=== PATIENT | female | born 1995 | race Caucasian/White ===

== ENCOUNTER → 2017-04-25 | Outpatient (CLI) | payer OTHER ==
[~2017-04-25] MED LIST: ALBUAER2 INH; ANSHCCR/ PR; ASPEC81 PO; CHLO100T8 PO; CHLO1TAB15 PO; CRFL PO; CYNI1000 IM; DOCU-94 PO; ESCI10TA17 PO; FLNIN/ NAE; FLV1 PO; FLVHFA44 INH; GABA1CAP4 PO; GABA1CAP5 PO; LISI10TA PO; LORA10TA5 PO; LXP/20 PO; NAPR-1169 PO; OMEP40CA41 PO; PLEC3TAB PO; PRAZ2CAP3 PO; RANI150C4 PO; SUCR1TAB29 PO; TRAV0.00 OPB; VNTHFA/IN INH; WLLSR/200 PO; feosol PO
[2017-04-25 18:28] LABS: BLOOD UREA NITROGEN 5 mg/dl (7-18); BUN/CREATININE RATIO 7.1 (10-20); CALCIUM 9.2 mg/dl (8.5-10.1); CARBON DIOXIDE 27 mmol/L (21-32); CHLORIDE 108 mmol/L (98-107); CHOLESTEROL 201 mg/dl (0-200); CREATININE 0.65 mg/dl (0.60-1.20); GLUCOSE 85 mg/dl (70-99); POTASSIUM 4.4 mmol/L (3.5-5.1); SODIUM 141 mmol/L (136-145)
[2017-04-25 18:32] LABS: CHOLESTEROL/HDL RATIO 5.6; HDL CHOLESTEROL 36 mg/dl; LDL CHOLESTEROL CALCULATED 141 mg/dl; TRIGLYCERIDES 121 mg/dl (0-150); VERY LOW DENSITY LIPOPROT CALC 24 mg/dl
[2017-04-26 07:07] LABS: ESTIMATED AVERAGE GLUCOSE 117 mg/dl; HA1C FLAG Normal (Normal)
--- NOTE | 2017-05-09 11:54 | CODING QUERY MEDICAL NECESSITY ---
SUPPORTING DIAGNOSIS NEEDED Nestor WADSWORTH, A supporting diagnosis is required for the test/procedure performed on this patient in order for us to be reimbursed by the patient's insurance. Please provide a supporting diagnosis for the following test/procedure listed below next to the test name along with your signature. *If there is no additional diagnosis for this patient that would support the following test/procedure please document that below next to the test/procedure. Test(s)/Procedure(s) that require a supporting diagnosis: * 30734 GLYCATED HEMOGLOBIN DIAGNOSIS: DATE OF SERVICE: 04/25/17 Provider Signature: Date: Thank you Ron Reynolds [facility] Information Management Once completed, please kindly fax back to [phone] For questions please call [phone]
== END | disposition home or self-care (01) ==
LOC: C.LABPBG 14:14
PROVIDERS: ATTEND Physician Assistant
DX: Z00.00 Encounter for general adult medical examination without abnormal findings (principal); Z13.1 Encounter for screening for diabetes mellitus; E53.8 Deficiency of other specified B group vitamins

== ENCOUNTER → 2017-06-26 | Outpatient (CLI) | payer OTHER ==
--- NOTE | 2017-06-27 06:00 | PAP/PSG TECHNICIAN REPORT ---
[facility] Automatic Pinsetter Adjuster Polysomnogram Report Study name: None Report date: 06/27/2017 Study date: 06/26/2017 Referring Physician: Viktor Bruno M.D. Name: HOMER FERNANDEZ Interpreting Physician: Jaspreet Bruno M.D. Date of : 1995 Automatic Pinsetter Adjuster: Leanna Mcmahan [facility]. Sex: Female Age: 22 StudyType: PSG Weight: 231 lbs Height: 22 years, Height 5' 0" Neck Circum: 16 inches BMI: 45.11 Medications: Minipress 1 mg, Folic Acid 1 mg, Cyanocobalamin 1000 MCG/ML, Proventil HFA 108 ( 90 Base), Omeprazole 40 mg, Flovent HFA 220 MCG, Loestrin 1.5/30, Nuerontin 300 mg, Clonazepam, Bupropion HCL ER 200 mg, Travatan Z 0.004%, Thorazine 100 mg, Thorazine 50 mg, Ranitidine HCL 150 mg, Naproxen 500 mg, Escitalopram 20 mg Patient History 22 yr. old female here for a possible split night sleep study with ETC02 in room 4. Patient complains of loud snoring, choking, nocturia, and EDS. Patients [place] Sleepiness Scale Score is 11/24. Parameters Monitored NPSG: E1-M2, E2-M1, Fp1-M2, Fp2-M1, F3-M2, F4-M2, F4-M1, C3-M2, C4-M2, C4-M1, O1-M2, O2-M2, O2-M1, T3-M2, T4-M1, P3-M2, P4-M1, CHIN1, CHIN2, HR, EKG, Legs, PFLOW, SNOR, FLOW, CFLOW, Tidal Volume, THOR, ABDO, SpO2, PLTH, CPRESS, ETCO2 Wave, ETCO2, pH Sleep Architecture Sleep Stages Time at Lights Off 9:38:44 PM STAGES Time (min.) TST (%) Time at Lights On 5:30:14 AM Wake 72.0 -- Total Recording Time (TRT) 472.00 min. N1 17.5 4 Total Sleep Period (TSP) 425.0 min. N2 194.5 49 Total Sleep Time (TST) 399.5min. N3 109.5 27 Awake Time 72.5 min. REM 78.0 20 Wake after Sleep Onset 26.5 min. Sleep Efficiency (SE) 85 % Sleep Onset Latency (TELLO) 45.5 min. Number of Stage 1 Shifts None Awakenings 13 Stage Changes 59 Number of REM periods 6 REM 78.0 20 REM Latency 82.0 min. NREM 321.5 80 Body Position Analysis Supine Right Left Side Prone Vertical Total Sleep Time (min.) 232.7 0.0 104.4 104.41 68.6 7.0 Total Sleep Time (%) 57% 0% 26% 26 17% N/A% Total Sleep Time REM (min.) 37.5 0.0 29.5 None 11.0 0.0 Total Sleep Time NREM (min.) 190.5 0.0 74.9 None 56.1 0.0 Intermittent Wake (min.) 4.7 0.0 58.8 None 1.5 7.0 Total Sleep Period (%) 55% None None None None None Arousals Myoclonus (PLM) * Events Count Index Events Count Index Spontaneous 3 0 Events Awake (PLMW) 80 66.7 Respiratory 3 0.5 Events Asleep w/ Arousal (PLMA) 18 2.7 PLM 17 3 Events Asleep w/o Arousal (PLMS) 67 10.1 Snoring 3 0 Total Asleep 85 12.8 Total 26 4 Total 165 21 Respiratory Analysis * CA OA MA CH H RERA Total Count 1 0 0 0 67 1 68 Index 0.2 0.0 0.0 0 10.1 0 10.4 Mean Duration 11.3 0.0 0.0 0.00 21.0 27.0 20.9 Longest Duration 11.3 0.0 0.0 0.00 0.0 27.0 48.6 Respiratory Event Summary Total Supine ~Supine Right Left Prone REM NREM Apneas Count 1 1 0 N/A 0 0 0 1 Index 0.2 0 0 N/A 0.0 0 0 0 Hypopneas (4% Desat) Count 67 65 2 N/A 1 1 6 61 Index 10.1 17.1 1 N/A 0.6 0.9 4.6 11.4 Apneas & All Hypopneas Count 68 66 2 N/A 1 1 6 62 Index 10.2 17 1 N/A 1 1 4.6 11.6 Respiratory Events ([employer] Worker+All Hyp+RERA) Count 68 67 2 N/A 1 1 6 62 Index 10.4 18 1 N/A 0.6 0.9 4.6 11.8 Respiratory Related Arousal Count 3 67 0 N/A 0 0 0 3 Index 0.5 1 0 N/A 0 0 0 1 Snoring Analysis Supine Right Left Prone REM NREM Total Snore duration 1.6 min Snores count 45 N/A 5 2 2 50 52 Snore mean duration 1.8 Sec Snores index 12 N/A 3 2 1.5 9.3 7.8 TST with snoring (%) 0.4% SpO2 Analysis Total REM NREM Awake <50% 0.0 min. 0.0 min. 0.0 min. 0.0 min. 51 - 60% 0.0 min. 0.0 min. 0.0 min. 0.0 min. 61 - 70% 0.0 min. 0.0 min. 0.0 min. 0.0 min. 71 - 80% 0.3 min. 0.0 min. 0.0 min. 0.3 min. 81 - 90% 65.2 min. 10.5 min. 51.6 min. 3.1 min. 91 - 100% 398.2 min. 67.5 min. 269.8 min. 60.9 min. Average 94 95 94 96 Minimum SpO2 80 85 85 80 Desaturation Event Index 10.3 6.2 11.9 7.5 # Desat. Events below 89% 32 1 30 1 Time(%) with Saturation below 89% 3.9 1.0 2.6 0.4 Time(min.) with Saturation below 89% 18.0 4.4 11.9 1.6 Heart Rate Analysis End Tidal CO2 Analysis Min (bpm) Max (bpm) Average (bpm) TSP (mins) % of TSP Awake 87 254 100 Above 55 mmHg 0.0 0.0 NREM 76 138 99 50-55 mmHg 0.0 0.0 REM 81 162 98 45-50 mmHg 0.0 0.0 Overall 76 162 99 40-45 mmHg 247.0 61.8 35-40 mmHg 122.9 30.8 30-35 mmHg 28.1 7.0 Average ETCO2 0.1 Supplemental O2 Values Minimum O2 level: None Value Start Time End Time Automatic Pinsetter Adjuster Comments MS. Fernandez slept in the, left, supine and prone positions. Tachycardia and PLMs noted. No bruxism noted. Snoring was noted and scored as a 1 on a scale of 0 through 5. (0=no snoring, 5=snoring loud enough to be heard through a closed door or down the [address]) MS. Fernandez did not wake to use the restroom during the night. MS. Fernandez stated, that she had a normal night. The final report will be interpreted and signed by a sleep physician. The completed physician report will then be placed in the patient medical record. Therapy (cm H2O) 0 TIB (min.) 471.5 TST (min.) 399.5 Sleep Onset (min.) 45.5 REM Onset From Sleep (min.) 82.0 Sleep Efficiency % 85 Wakefulness (%) 15 Wakefulness (min.) 72.5 NREM 1 (%) 4 NREM 1 (min.) 17.5 NREM 2 (%) 49 NREM 2 (min.) 194.5 NREM 3 (%) 27 NREM 3 (min.) 109.5 REM (%) 20 REM (min.) 78.0 # Arousals 26 Arousal Index 4 # Snore 52 Snore Index 7.8 AHI 10.2 AHI Supine 17 AHI Non-Supine 1 NREM AHI 11.6 REM AHI 4.6 RDI 10.4 # Obstructive Apnea 0 # Central Apnea 1 # Mixed Apnea 0 # Hypopneas 67 RERAs 1 Total Respiratory Events 71 Time Below SpO2 89% (min.) 16.4 Mean NREM SpO2 (%) 94 Mean REM SpO2 (%) 95 Mean Sleep SpO2 (%) 94 Min NREM SpO2 (%) 85 Min REM SpO2 (%) 85 Position Supine (min.) 232.7 Position Non-supine (min.) 171.5 LM Index Sleep 12.8 LM Index NREM 14.9 LM Index REM 3.8 Mean Heart Rate (bpm) 99 Min Heart Rate (bpm) 76
--- NOTE | 2017-07-13 14:45 | POLYSOMNOGRAPH REPORT ---
REFERRING PERSON: Dr. Shira Bruno. QUALITY COMPLIANCE MANAGER: Leanna Mcmahan. Ms. Hughes is a 22-year-old female for a possible split night sleep study. She complains of loud snoring, choking, nocturnal hypoxemia and excessive daytime sleepiness. Her [place] sleepiness scale score on the evening of this study was 11. BMI was 45.11. Following the technical and digital specifications of the [place] [employer] (AASM) a standard diagnostic polysomnogram was performed monitoring EEG, EOG, EMG (chin and leg deviations), oxygen saturation, body position, digital video, respiratory effort and airflow. The sleep Stage and event scoring was based on the AASM Manual for the Scoring of Sleep and Associated Events 2007 edition. Apneas are defined as a drop in the peak thermal sensor excursion by >90% of baseline for at least 10 seconds. Hypopneas were scored using the 4% oxygen desaturation rule (4A-Medicare) and a decrease in the nasal pressure excursions by >30% of baseline for at least 10 seconds. Respiratory effort-related arousal (RERA's) is defined as a sequence of breaths lasting at least 10 seconds characterized by increasing respiratory effort or flattening of the nasal pressure waveform leading to an arousal from sleep when the sequence of breaths does not meet criteria for an apnea or hypopnea. Apnea Hypopnea index (AHI) is defined as the number of apneas and hypopneas occurring in an hour of sleep. Respiratory disturbance index (RDI) is defined as the number of apneas, hypopneas, and RERA's occurring in an hour of sleep. Ms. Hughes's total sleep period time was 425 minutes. Total sleep time was 399.5 minutes. Sleep efficiency was 85%. Latency to sleep onset was 45.5 minutes. Wake after sleep onset was 26.5 minutes. Total non-REM sleep time was 321.5 minutes. She spent 4% of that time in N1 sleep, 49% in N2 sleep and 27% in N3 sleep. REM latency was 82 minutes. Total REM sleep time was 78 minutes or 20% of total sleep time. There were 26 cortical arousals from sleep. 3 of these arousals were spontaneous, 3 were due to respiratory events, 17 due to periodic limb movements of sleep and 3 were due to snoring. There were 85 periodic limb movements noted on this test. Limb movement index was 12.8 and limb movement with arousal index was 2.7. There were 1 central apnea, no obstructive apneas and no mixed apneas on this test. However, there were 67 hypopnea. Apnea-hypopnea index was 10.2. Supine AHI was 17 and REM AHI was 4.6. Mean saturation during sleep was 94% with desaturations to 80%. Saturations were less than 89% for 18 minutes of sleep time. This patient was noted to have tachycardia during supine REM sleep on this test. Her heart rate reached 160 beats per minute. End-tidal CO2 was recorded on this test. End tidal CO2s were between 40 and 45 mmHg for 61.8% of total sleep period time, between 35 and 40 mmHg for 30.8% and between 30 and 35 mmHg for 7% of total sleep period time. IMPRESSION AND PLAN: 1. A 22-year-old female with evidence of mild sleep apnea and mild nocturnal hypoxemia on this study. Additionally, she was noted to have tachycardia during supine REM sleep to 160 beats per minute. 2. This patient would likely benefit from positive airway pressure therapy. She should return to sleep lab for a full night titration and then based on those results, be started on equipment at home. A download from her machine can be reviewed in 1 month both to check compliance as well as AHI and further pressure adjustments can occur at that time. 3. Should this tachycardia be new, the patient may benefit from a 30-day event recorder or Holter monitor to evaluate this further.
== END | disposition home or self-care (01) ==
LOC: C.NEUR 21:00
PROVIDERS: ATTEND Family Medicine
DX: R06.83 Snoring (principal); G47.10 Hypersomnia, unspecified; E66.01 Morbid (severe) obesity due to excess calories; G47.33 Obstructive sleep apnea (adult) (pediatric)

== ENCOUNTER → 2017-08-07 | Outpatient (CLI) | payer OTHER ==
[~2017-08-07] MED LIST changes: -ALBUAER2 INH; -ANSHCCR/ PR; -ASPEC81 PO; -CRFL PO; -DOCU-94 PO; -ESCI10TA17 PO; -FLNIN/ NAE; -GABA1CAP5 PO; -LORA10TA5 PO
[2017-08-07 13:03] LABS: BLOOD UREA NITROGEN 7 mg/dl (7-18); BUN/CREATININE RATIO 10.5 (10-20); CALCIUM 9.1 mg/dl (8.5-10.1); CARBON DIOXIDE 25 mmol/L (21-32); CHLORIDE 108 mmol/L (98-107); CREATININE 0.62 mg/dl (0.60-1.20); GLUCOSE 95 mg/dl (70-99); POTASSIUM 3.7 mmol/L (3.5-5.1); SODIUM 139 mmol/L (136-145)
== END | disposition home or self-care (01) ==
LOC: C.LABPBG 10:37
PROVIDERS: ATTEND Physician Assistant
DX: Z01.818 Encounter for other preprocedural examination (principal)

== ENCOUNTER → 2017-08-17 | Day surgery (SDC) | payer OTHER ==
[2017-07-24 14:45] VITALS: BMI 42.0
--- NOTE | 2017-07-24 15:53 | PAT Medication Instructions ---
Service Date Jul 24, 2017. Current Home Medication List Albuterol Hfa (Ventolin Hfa), 2-4 PUFFS INH Q6H PRN for SOB/Wheezing Bupropion Hcl (Wellbutrin Sr), 200 MG PO BID Chlorpromazine Hcl (Thorazine), 50 MG PO QAM Chlorpromazine Hcl (Thorazine), 100 MG PO HS Cyanocobalamin (Cyanocobalamin), 1,000 MCG IM MONTHLY Escitalopram Oxalate (Escitalopram Oxalate), 1 TAB PO QAM Fluticasone Propionate (Flovent Hfa), 2 PUFFS INH BID Folic Acid (Folic Acid), 1 MG PO QAM Gabapentin (Gabapentin), 1 CAP PO TID Naproxen (Naprosyn), 500 MG PO DAILY PRN for Pain Omeprazole (Prilosec), 40 MG PO QAM Plecanatide (Trulance), 1 TAB PO QPM Prazosin Hcl (Prazosin), 2 MG PO HS Ranitidine Hcl (Ranitidine Hcl), 1 CAP PO BID Sucralfate (Carafate), 1 TAB PO QID Travoprost (Travatan Z), 1 DROP OPB HS [feosol], 324 MG PO QAM Medication Instructions For Your Scheduled Surgery - Continue as directed: Cyanocobalamin (Cyanocobalamin), 1,000 MCG IM MONTHLY - Hold the following medications 7 days prior to surgery per primary physician' s instructions: Naproxen (Naprosyn), 500 MG PO DAILY PRN for Pain - Hold the following medications the morning of surgery: Folic Acid (Folic Acid), 1 MG PO QAM [feosol], 324 MG PO QAM Sucralfate (Carafate), 1 TAB PO QID - Take the following medications the morning of surgery with a sip of water OTHERWISE NOTHING TO EAT OR DRINK AFTER MIDNIGHT: Fluticasone Propionate (Flovent Hfa), 2 PUFFS INH BID Albuterol Hfa (Ventolin Hfa), 2-4 PUFFS INH Q6H PRN for SOB/Wheezing (use if needed; BRING TO HOSPITAL) Ranitidine Hcl (Ranitidine Hcl), 1 CAP PO BID Bupropion Hcl (Wellbutrin Sr), 200 MG PO BID Gabapentin (Gabapentin), 1 CAP PO TID Escitalopram Oxalate (Escitalopram Oxalate), 1 TAB PO QAM Chlorpromazine Hcl (Thorazine), 50 MG PO QAM Omeprazole (Prilosec), 40 MG PO QAM - Take the following medications as scheduled the night before surgery: Fluticasone Propionate (Flovent Hfa), 2 PUFFS INH BID Albuterol Hfa (Ventolin Hfa), 2-4 PUFFS INH Q6H PRN for SOB/Wheezing Ranitidine Hcl (Ranitidine Hcl), 1 CAP PO BID Bupropion Hcl (Wellbutrin Sr), 200 MG PO BID Gabapentin (Gabapentin), 1 CAP PO TID Plecanatide (Trulance), 1 TAB PO QPM Prazosin Hcl (Prazosin), 2 MG PO HS Chlorpromazine Hcl (Thorazine), 100 MG PO HS Sucralfate (Carafate), 1 TAB PO QID Travoprost (Travatan Z), 1 DROP OPB HS - Hold the following for 24hours prior to surgery: (new blood pressure medicine) Lisinopril 10mg If you have any questions please call us at [phone] or [phone] or [phone]
[2017-07-24 16:30] LABS: BASO % 0.5 %; BASO ABS # 0.03 K/uL (0-0.2); COMPLETE YES; EOS % 0.8 %; LYMPH % 46.6 %; LYMPH ABS # 2.77 K/uL (1.2-3.4); MEAN CELL VOLUME 82.8 fL (80-100); MEAN CORPUSCULAR HEMOGLOBIN 26.9 pg (25-34); MEAN CORPUSCULAR HGB CONC 32.4 g/dl (32-36); MEAN PLATELET VOLUME 9.8 fL (7.4-10.4); MONO % 7.7 %; NEUT % 44.4 %; PLATELET COUNT 373 K/uL (130-400); RED BLOOD COUNT 4.95 M/uL (4.2-5.4); WHITE BLOOD COUNT 5.94 K/uL (4.8-10.8)
[2017-07-24 16:37] LABS: CALCIUM 9.1 mg/dl (8.5-10.1); CREATININE 0.63 mg/dl (0.60-1.20)
[2017-07-24 16:43] LABS: PARTIAL THROMBOPLASTIN RATIO 1.2; URINE APPEARANCE CLOUDY (CLEAR); URINE BILIRUBIN NEG (NEG); URINE COLOR YELLOW; URINE EPITHELIAL CELL AUTO 20-30 /lpf (0-5); URINE NITRITE NEG (NEG); URINE PH 7.5 (4.5-7.5); URINE SPECIFIC GRAVITY 1.025 (1.000-1.030); UROBILINOGEN NEG (NEG)
[2017-07-24 16:48] LABS: MANUAL MICROSCOPIC REQUIRED? NO; REVIEW REQ? NO
[2017-07-25 05:47] LABS: ESTIMATED AVERAGE GLUCOSE 117 mg/dl; HA1C FLAG Normal (Normal)
[~2017-08-17] VITALS: Ht 154.9 cm; Wt 101.8 kg
[~2017-08-17] MED LIST changes: +ATROPINE SULFATE 0.1 MG/ML 5ML SYR IV PRN; +BACITRACIN 50000 UNIT VIAL ONE; +BUPIVACAINE 0.25% 30 ML VIAL ONE; +BUPIVACAINE/EPINEPHRINE 0.25% 1:200,000 30 ML VIAL ONE; +CEFAZOLIN 2000MG IV PUSH 10 ML IV SCH; +DEXAMETHASONE SOD INJ 4 MG/ML VIAL ONE; +EpHEDrine SULFATE INJ 50 MG/ML AMP IV PRN; +EpINEphrine HCL INJ 1 MG/ML 5ML SYRINGE ONE; +EpINEphrine INJ 1MG/ML AMP 1 MG/ML AMP ONE; +FENTANYL CITRATE INJ 50 MCG/1 ML 2 ML VIAL ONE; +FERR1TAB23 PO; +GLYCOPYRROLATE INJ 0.2 MG/ML VIAL ONE; +HYDROmorphone INJ 1 MG/ML SYR IV PRN; +HYDROmorphone INJ 2 MG/ML SYR/VIAL ONE; +LACTATED RINGER'S 1000ML 1,000 ML IV SCH; +LIDOCAINE HCL 2% 2 ML VIAL (20MG/ML) ONE; +MIDAZOLAM HCL 1 MG/ML 2ML VIAL ONE; +MORPHINE SULFATE PF 2MG/2ML SYR ONE; +NEOSTIGMINE METHYLSULFATE 5 MG/5 ML SYR ONE; +NURSING VERBAL MED ORDER ONE; +ONDANSETRON INJ 2 MG/ML 2 ML VIAL IV PRN; +ONDANSETRON INJ 2 MG/ML 2 ML VIAL ONE; +OXYCODONE/ACETAMINOPHEN 5-325 TAB PO PRN; +PERCOCET HOME PACK PO ONE; +PHENYLEPHRINE 100MCG/ML 5ML SYR ONE; +PROMETHAZINE HCL INJ 6.25 MG in SODIUM CHLORIDE 0.9% 50ML 50 ML IV PRN; +PROPOFOL IV EMULSION 10 MG/ML 20 ML VIAL IV ONE; +ROCURONIUM BROMIDE 10 MG/ML 5 ML VIAL IV ONE
--- NOTE | 2017-08-17 00:38 | HISTORY & PHYSICAL EXAMINATION ---
DATE OF ADMISSION: 08/17/2017 SUBJECTIVE CHIEF COMPLAINT: Left ankle pain. HISTORY OF PRESENT ILLNESS: This is a patient who sustained a left distal tibia and fibula fracture. The fractures have since healed; however, she has developed traumatic arthritis and pain within the left ankle and hindfoot. She has been treated conservatively; however, she has failed conservative management and she is now being set up for surgical treatment. PAST MEDICAL HISTORY: Asthma and COPD, depression and mood disorder, history of anxiety, history of anemia, prediabetes, acid reflux, obesity, hypertension, vitamin B12 deficiency. SOCIAL HISTORY: The patient denies alcohol and tobacco use. PAST SURGICAL HISTORY: Left ankle and a neck procedure. ALLERGIES: SULFA MEDICATIONS AND LATEX. FAMILY HISTORY: Noncontributory. CURRENT MEDICATIONS: Flovent 220 mcg 1 puff b.i.d., Claritin 10 mg 1 p.o. daily, omeprazole 40 mg 2 p.o. daily, Colace 100 mg 2 p.o. at bedtime, Carafate 1 gram 1 tablet q.i.d., Lexapro 10 mg 1 p.o. daily, Zantac 150 mg 1 p.o. b.i.d., albuterol HFA 2 puffs every 4 hours as needed for shortness of breath, gabapentin 400 mg 1 p.o. t.i.d., prazosin 2 mg 1 p.o. t.i.d., folic acid 1 mg 1 p.o. daily, naproxen 500 mg 1 p.o. b.i.d., Travatan Z 0.004% eyedrops 1 drop in each eye daily, bupropion SR 200 mg 1 p.o. b.i.d. OBJECTIVE PHYSICAL EXAMINATION: GENERAL: The patient is alert and oriented x3. She is in no acute distress. She is a well-dressed, well-nourished 22-year-old female. Her affect is appropriate. CARDIOVASCULAR: Heart has a regular rhythm and rate without murmurs. LUNGS: Clear to auscultation bilateral. EXTREMITIES: Dorsalis pedis, posterior tib pulse +2/4. Cap refill is less than 2 seconds. LYMPHATIC: No evidence of any swollen lymph nodes. MUSCULOSKELETAL: The patient has an antalgic gait favoring the left lower extremity. Upon inspection of left lower extremity, she has a well-healed surgical incision over both the medial and lateral aspects of the ankle. With palpation, she has tenderness along the anterior aspect of the ankle joint. She also has tenderness along the sinus tarsi. She has decreased range of motion with dorsiflexion, plantarflexion, and inversion and eversion. Pain is elicited with any passive range of motion. She has decreased strength secondary to pain. NEUROLOGIC: Sensation normal and intact distally. X-RAY EXAMINATION: Multiple views of the left ankle demonstrate stable hardware and implants in the distal tibia and fibula. There appears to be a well-healed fracture of the distal tibia and fibula. There is arthritic change noted of the tibiotalar joint with anterior spurring of both the tibia and the talus. Subtalar osteoarthritic change also noted. ASSESSMENT AND DIAGNOSES: 1. Traumatic arthritis, left tibiotalar joint. 2. 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 3. Painful hardware, left distal tibia and fibula. PLAN: Above assessment was discussed with the patient. At this time, it was recommended the patient undergo left ankle arthroscopy with debridement of arthrofibrosis and exostectomy of the tibia and talus, also open removal of hardware from the distal tibia and fibula and open subtalar fusion. All potential risks, benefits, complications, alternatives and rehab have been discussed with the patient, and at this time, she wishes to proceed with the surgery as indicated. She will be scheduled for the surgery on 08/17/2017.
[2017-08-17 10:49] VITALS: BP 135/91; PULSE 87; TEMP 37.1; O2SAT 98; Ht 154.9 cm; Wt 101.8 kg
[2017-08-17 11:41] LABS: PREG INTERNAL POSITIVE QC POS CONTROL LINE
[2017-08-17 11:42] LABS: PREG INTERNAL NEGATIVE QC NEG CLEAR BACKGROUND
--- NOTE | 2017-08-17 12:35 | History & Physical Bridge Note ---
H&P Re-Evaluation Bridge Note: I have examined the patient, reviewed the History & Physical and in the interval since the performance of the History & Physical I have noted the following changes of clinical significance: No changes noted
--- NOTE | 2017-08-17 16:44 | DIAGNOSTIC IMAGING REPORT ---
INTRAOPERATIVE LEFT FOOT 2 VIEWS CLINICAL HISTORY: Hardware removal and fusion. COMPARISON STUDY: 01/28/2016 FINDINGS: 12 seconds of fluoroscopic time was utilized. 2 intraoperative fluoroscopic spot images are provided for interpretation. There is been interval removal of the distal tibia and fibular metallic plate and screws. There is been interval insertion of a cannulated screw traversing the talo calcaneal joint. IMPRESSION: Intraoperative fluoroscopic spot films. Postsurgical changes as described above. Electronically signed by: Mk Valdez M.D. 08/17/2017 4:43 PM Dictated Date/Time: 08/17/2017 4:41 PM
[2017-08-17] MEDS: FENTANYL CITRATE INJ 50 MCG/1 ML 2 ML VIAL IV PRN ×5 (17:05→17:30)
--- NOTE | 2017-08-17 17:37 | [facility] Post Operative Brief Note ---
Immediate Operative Summary Operative Date Aug 17, 2017. Pre-Operative Diagnosis Traumatic arthritis, left tibiotalar joint. 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 Painful hardware, left distal tibia and fibula. Arthrofibrosis ankle Post-Operative Diagnosis SAME Procedure(s) Performed Left Ankle Arthroscopic Debridement Arthrofibrosis; Removal of Hardware from the Tibia and Fibula, Exostectomy Tibia; Exostectomy Talus; Subtalar Fusion; Debridement Arthrofibrosis Surgeon DR. GOMEZ Glue Maker Bone Surgeon(s) NONE Estimated Blood Loss 20 ML Findings See dict Specimens A. EXPLANTED HARDWARE Drains None Anesthesia GLMA w/ popliteal block Complication(s) None Disposition Recovery Room / PACU
--- NOTE | 2017-08-17 17:40 | Anesthesiology Progress Note ---
Anesthesia Post Op Note Date & Time Aug 17, 2017 at 17:39 Vital Signs Pain Intensity: 2 Vital Signs Past 12 Hours Date Time Temp Pulse Resp B/P (MAP) Pulse Ox O2 Delivery O2 Flow Rate FiO2 08/17/17 17:35 36.4 95 16 93/61 94 Room Air Oxymask 08/17/17 17:25 95 16 108/63 94 Room Air Oxymask 08/17/17 17:15 99 16 110/64 100 Oxymask 10 08/17/17 17:05 96 16 105/50 100 Oxymask 10 08/17/17 16:57 36.4 112 16 130/60 100 Oxymask 10 08/17/17 10:49 37.1 87 18 135/91 (106) 98 Room Air Notes Mental Status: alert / awake / arousable, participated in evaluation Pt Amnestic to Procedure: Yes Nausea / Vomiting: adequately controlled Pain: adequately controlled Airway Patency, RR, SpO2: stable & adequate BP & HR: stable & adequate Hydration State: stable & adequate Anesthetic Complications: no major complications apparent
--- NOTE | 2017-08-17 17:50 | Discharge Instructions ---
Discharge Instructions Date of Service Aug 17, 2017. Admission Reason for Admission: Left Ankle/Subtalar Post-traumatic Osteoarthritis, Painful Hardware Tibia and Talus, Exostoses Tibia and Talus Discharge Discharge Diagnosis / Problem: Left Ankle/Subtalar Post-traumatic Osteoarthritis, Painful Hardware Tibia a Discharge Goals Goal(s): Decrease discomfort, Improve function Activity Recommendations Activity Limitations: as noted below . Instructions / Follow-Up Instructions / Follow-Up ACTIVITY RECOMMENDATIONS: Limitations: No weight bearing to affected limb at all times. SPECIAL CARE INSTRUCTIONS: * Some drainage onto the dressing is normal and is no cause for alarm. * Some swelling is natural especially after walking. * When resting, keep your foot elevated above the level of your heart. * Call [facility] if you notice: -Increased drainage -Fever over 101 degrees F -Severe constant pain * Begin Enteric Coated Aspirin 81mg Twice per Day for 4 weeks Beginning at 9AM 08/18/2017 BANDAGE: * Leave bandage/cast in place unless otherwise directed. * Keep bandage/cast dry at all times. FOLLOW UP VISIT WITH DR. GOMEZ If appointment is not already scheduled: Please call [facility] after you get home today to schedule a follow-up appointment for [address] Gomez at . Current Hospital Diet Patient's current hospital diet: Discharge Diet Recommended Diet: Diabetes Type 2 Diet Procedures Procedures Performed: Left Ankle Arthroscopic Debridement Arthrofibrosis; Removal of Hardware from the Tibia and Fibula, Exostectomy Tibia; Exostectomy Talus; Subtalar Fusion; Debridement Arthrofibrosis Pending Studies Studies pending at discharge: no Laboratory Results Hemoglobin A1c Test 07/24/17 16:03 Range/Units Estimated Average Glucose 117 mg/dl Hemoglobin A1c 5.7 H 4.5-5.6 % Medical Emergencies . Who to Call and When: Medical Emergencies: If at any time you feel your situation is an emergency, please call 911 immediately. . Non-Emergent Contact Non-Emergency issues call your: Surgeon Call Non-Emergent contact if: temperature is above 101 . "Provider Documentation" section prepared by Bolivar Gomez. . VTE Core Measure Inpt VTE Proph given/why not?: Other Anticoagulation
[2017-08-17 18:00] VITALS: BP 109/57; PULSE 106; TEMP 36.7; O2SAT 95
[2017-08-17 18:30] VITALS: BP 102/75; PULSE 110; TEMP 36.7; O2SAT 97
[2017-08-17 19:00] VITALS: BP 117/62; PULSE 105; TEMP 37.3; O2SAT 95
--- NOTE | 2017-08-17 22:16 | OPERATIVE REPORT ---
DATE OF OPERATION: 08/17/2017 PREOPERATIVE DIAGNOSES: 1. 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 2. Arthrofibrosis of the ankle joint. 3. Painful retained hardware of the tibia and the talus. 4. Exostosis of the tibia. 5. Exostosis of the talus. POSTOPERATIVE DIAGNOSES: 1. 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 2. Arthrofibrosis of the ankle joint. 3. Painful retained hardware of the tibia and the talus. 4. Exostosis of the tibia. 5. Exostosis of the talus. PROCEDURES: 1. Left ankle arthroscopy with exostectomy of the tibia. 2. Exostectomy of the talus. 3. Debridement arthrofibrosis of ankle. 4. Removal of hardware, tibia. 5. Removal of hardware, fibula. 6. Subtalar joint fusion. SURGEON: Dr. Bolivar Darby. AUTOMOBILE DAMAGE FIELD APPRAISER: None. ANESTHESIA: General LMA with popliteal block. SPECIMENS: Explanted hardware. DRAINS: None. COMPLICATIONS: None. BLOOD LOSS: 20 mL. PERTINENT HISTORY: This is a 22-year-old female who had prior fracture of her left distal tibial pilon and fibula. She underwent open reduction and internal fixation and had a relatively uneventful recovery course. Over the last several years, she has had some discomfort related to hardware within the ankle joint which has progressively worsened. She had attempts at management with bracing, anti-inflammatories, use of a cane and physician directed home exercises. The patient failed these measures. She had radiographs and MRI of the left ankle demonstrating post-traumatic degenerative changes of the subtalar joint, fibrosis of the ankle joint and exostoses of the tibia and talus as well as retained hardware. The patient was then scheduled for surgery as indicated. All potential risks, benefits, complications of surgery, alternatives, rehab, potential for incomplete relief of symptoms, need for further surgery, DVT, PE, , persistent pain, swelling, scarring, weakness, neurovascular injury, wound complications, hardware failure, nonunion, malunion and bone fracture were discussed with the patient. The patient decided to proceed with the procedure as indicated. DESCRIPTION OF PROCEDURE: The patient had a popliteal block in the preop holding area. The patient was taken to the operative suite, placed supine on the operating table. After review of consent and identification of proper operative site, patient was anesthetized and LMA was placed. Tourniquet was placed high on the left thigh over cast padding. Left lower extremity was then sterilely prepped and draped in the usual fashion, elevated, exsanguinated with an Esmarch bandage, tourniquet inflated to 325 mmHg. Next, the joint was injected with approximately 12 mL of 0.5% Marcaine with epinephrine followed by incision along the medial aspect of the anterior joint line with a #11 blade scalpel followed by placement of blunt trocar and sleeve, camera and inflow. Next, under direct visualization, the lateral portal site was established with an 18-gauge spinal needle followed by 11-blade scalpel incision. Next, sequential diagnostic arthroscopy commenced in the anterior ankle joint noting significant arthrofibrosis and scarring. Difficulty with visualization due to the abundance of arthrofibrosis and scarring. Next, 3.5 mm sucker shaver was introduced and debridement of arthrofibrosis was then performed throughout the anterior compartment of the ankle joint. Next, the blunt-tipped probe was then used to assess articular surface, there was noted to be fibrotic tissue between the tibia and talus. It was debrided with a 3.5 mm sucker shaver. There was noted to softening of the articular surfaces of the tibia and the talus due to post-traumatic nature of the patient's previous history. 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 No exposed bone of the tibia or the talus. There were, however, large exostoses of the distal tibia and the talus with some early impingement. Next 4.0 mm barrel bur was then used to resect the exostosis of the distal tibia and the talus. All particulate debris was then flushed from the joint. Next, the arthroscope was then removed from the ankle joint. Portal sites were closed using interrupted 4-0 nylon sutures. Next, the 15-blade scalpel was used to make multiple small incisions along the medial aspect of the distal tibia at the site of the previous insertion of locking plate and screws. All locking screws were removed through multiple small stab incisions in the tibia. The plate was then removed without difficulty. Next, the small holes were then curetted with small curette and irrigated until clear. Next, a 15-blade scalpel was used to make an incision over the lateral malleolus and extended both proximally and distally to the extent of the plate insertion. This incision was then deepened to subcutaneous tissue with a 15-blade scalpel. The fibrous tissue was then incised over the plate and the screws were then removed without difficulty. The plate was removed from the lateral aspect of the fibula. Small holes were then curetted with a small curette and irrigated until clear. Next, the anterior screw in the distal tibia was then localized with fluoroscopic visualization followed by 15-blade scalpel stab incision in the anterior aspect of the tibia. Careful blunt dissection was performed to the level of the anterior cortex of the tibia and the screw was removed without difficulty. The small hole was then curetted with a small curette and irrigated until clear. Next, the 15-blade scalpel was used to make an incision centered over the sinus tarsi. The dissection was then carried through the subcutaneous tissue. Full thickness skin flaps developed and hemostasis was achieved with electrocautery. The wound was irrigated with sterile normal saline. The extensor digitorum brevis was then incised along the skin incision, carefully elevated both superiorly and inferiorly revealing the subtalar joint. Subtalar joint was noted to have scarring, fibrosis and loss of articular cartilage. Next, a small curet was then used to curettage the articular cartilage down to the subchondral bone and the wound was irrigated with sterile normal saline. Next, a 2.0 mm drill bit was then used to make multiple drill holes in the subtalar joint, both the talus and the calcaneus followed by use of a 6 mm osteotome and mallet then used to fish scale the subtalar joint, both the talus and the calcaneus. Next, the joint surfaces were then approximated, and a small stab incision was made in the posterior tuberosity of the calcaneus followed by placement of a 7.3 mm cannulated screw to compress and stabilize the subtalar joint. This was performed under live fluoroscopic assistance. Next, the incisions were then closed using a 4-0 nylon suture and the lateral incision was then irrigated with sterile normal saline followed by closure of the periosteum with 2-0 Vicryl. The dermis was closed using buried interrupted 3-0 Vicryl, skin was closed using 4-0 nylon. Next, the extensor digitorum brevis was then closed using 2-0 Vicryl after irrigation with sterile normal saline. The dermis was then closed using buried interrupted 3-0 Vicryl, skin was closed using 4-0 nylon. Next, attention was then directed toward the medial aspect of the ankle. This was irrigated with sterile normal saline followed by closure of the deep soft tissue with 2-0 Vicryl, the dermis was closed using buried interrupted 3-0 Vicryl, and skin was closed using 4-0 nylon. Finally, a sterile compressive dressing and bulky Logan Powers plaster splint was applied, overwrapped with Brandon wrap. The foot was held in neutral dorsiflexion, the tourniquet was released. The patient was then awakened and taken to recovery in stable condition. I attest to the content of the Intraoperative Record and any orders documented therein. Any exceptions are noted below. JOSE
== END | disposition home or self-care (01) ==
LOC: C.ACU 10:11
PROVIDERS: ATTEND Orthopaedic Surgery Sports Medicine
DX: M12.571 Traumatic arthropathy, right ankle and foot (principal); T84.84XA Pain due to internal orthopedic prosthetic devices, implants and grafts, initial encounter; J44.9 Chronic obstructive pulmonary disease, unspecified; F32.9 Major depressive disorder, single episode, unspecified; F41.9 Anxiety disorder, unspecified; E11.9 Type 2 diabetes mellitus without complications; K21.9 Gastro-esophageal reflux disease without esophagitis; E66.01 Morbid (severe) obesity due to excess calories; I10 Essential (primary) hypertension; K44.9 Diaphragmatic hernia without obstruction or gangrene; F43.10 Post-traumatic stress disorder, unspecified

== ENCOUNTER → 2017-10-30 | Outpatient (CLI) | payer OTHER ==
[~2017-10-30] MED LIST changes: -ATROPINE SULFATE 0.1 MG/ML 5ML SYR IV PRN; -BACITRACIN 50000 UNIT VIAL ONE; -BUPIVACAINE 0.25% 30 ML VIAL ONE; -BUPIVACAINE/EPINEPHRINE 0.25% 1:200,000 30 ML VIAL ONE; -CEFAZOLIN 2000MG IV PUSH 10 ML IV SCH; -DEXAMETHASONE SOD INJ 4 MG/ML VIAL ONE; -EpHEDrine SULFATE INJ 50 MG/ML AMP IV PRN; -EpINEphrine HCL INJ 1 MG/ML 5ML SYRINGE ONE; -EpINEphrine INJ 1MG/ML AMP 1 MG/ML AMP ONE; -FENTANYL CITRATE INJ 50 MCG/1 ML 2 ML VIAL ONE; +GABA-1219 PO; -GABA1CAP4 PO; -GLYCOPYRROLATE INJ 0.2 MG/ML VIAL ONE; -HYDROmorphone INJ 1 MG/ML SYR IV PRN; -HYDROmorphone INJ 2 MG/ML SYR/VIAL ONE; -LACTATED RINGER'S 1000ML 1,000 ML IV SCH; -LIDOCAINE HCL 2% 2 ML VIAL (20MG/ML) ONE; -MIDAZOLAM HCL 1 MG/ML 2ML VIAL ONE; -MORPHINE SULFATE PF 2MG/2ML SYR ONE; -NAPR-1169 PO; -NEOSTIGMINE METHYLSULFATE 5 MG/5 ML SYR ONE; -NURSING VERBAL MED ORDER ONE; -ONDANSETRON INJ 2 MG/ML 2 ML VIAL IV PRN; -ONDANSETRON INJ 2 MG/ML 2 ML VIAL ONE; -OXYCODONE/ACETAMINOPHEN 5-325 TAB PO PRN; -PERCOCET HOME PACK PO ONE; -PHENYLEPHRINE 100MCG/ML 5ML SYR ONE; -PROMETHAZINE HCL INJ 6.25 MG in SODIUM CHLORIDE 0.9% 50ML 50 ML IV PRN; -PROPOFOL IV EMULSION 10 MG/ML 20 ML VIAL IV ONE; -ROCURONIUM BROMIDE 10 MG/ML 5 ML VIAL IV ONE; -feosol PO
[2017-10-30 18:10] LABS: TRANSFERRIN 303 mg/dl (200-360)
== END | disposition home or self-care (01) ==
LOC: C.LABPBG 15:06
PROVIDERS: ATTEND Physician Assistant
DX: E53.8 Deficiency of other specified B group vitamins (principal); D64.9 Anemia, unspecified

== ENCOUNTER → 2017-11-13 | Outpatient (CLI) | payer OTHER ==
[~2017-11-13] MED LIST changes: -GABA-1219 PO; +GABA1CAP4 PO
[2017-11-13 17:45] LABS: BLOOD UREA NITROGEN 8 mg/dl (7-18); CALCIUM 9.2 mg/dl (8.5-10.1); CARBON DIOXIDE 29 mmol/L (21-32); CREATININE 0.61 mg/dl (0.60-1.20); GLUCOSE 83 mg/dl (70-99); POTASSIUM 3.9 mmol/L (3.5-5.1); SODIUM 140 mmol/L (136-145)
== END | disposition home or self-care (01) ==
LOC: C.LABPBG 15:41
PROVIDERS: ATTEND Physician Assistant
DX: I10 Essential (primary) hypertension (principal)

== ENCOUNTER → 2018-02-15 | Outpatient (CLI) | payer OTHER ==
[~2018-02-15] MED LIST changes: +GABA-1219 PO; -GABA1CAP4 PO
== END | disposition home or self-care (01) ==
LOC: C.LABSPEC 15:33
PROVIDERS: ATTEND Family Medicine
DX: R30.0 Dysuria (principal)

== ENCOUNTER → 2018-02-15 | Outpatient (CLI) | payer OTHER | END | disposition home or self-care (01) | LOC: C.LABSPEC 17:13 | PROVIDERS: ATTEND Family Medicine | DX: N89.8 Other specified noninflammatory disorders of vagina (principal); N76.0 Acute vaginitis; R30.0 Dysuria ==

== ENCOUNTER 2019-08-27 15:43 | Inpatient (IN) ==
[2019-08-27] MEDS ORDERED: DIPHTHERIA/TETANUS/PERTUSSIS 0.5 ML SYR/VIAL IM ONE (16:12)
[2019-08-27] MEDS ORDERED: cephALEXin 250 MG CAP PO ONE (16:12)
[2019-08-27 16:41] LABS: Basophils # (auto) 0.03 K/uL (0-0.2); Basophils % (auto) 0.5 %; Eosinophils # (auto) 0.05 K/uL (0-0.5); Eosinophils % (auto) 0.8 %; Hematocrit (blood only) 41.4 % (37-47); Hemoglobin 13.7 g/dL (12.0-16.0); Lymphocytes # (auto) 1.87 K/uL (1.2-3.4); Lymphocytes % (auto) 28.2 %; Mean Corpuscular Hemoglobin 27.7 pg (25-34); Mean Corpuscular Hgb Conc 33.1 g/dL (32-36); Mean Corpuscular Volume 83.8 fL (80-100); Mean Platelet Volume 9.5 fL (7.4-10.4); Monocytes # (auto) 0.47 K/uL (0.11-0.59); Monocytes % (auto) 7.1 %; Neutrophils # (auto) 4.21 K/uL (1.4-6.5); Neutrophils % (auto) 63.4 %; Platelet Count 400 K/uL (130-400); RDW Coefficient of Variation 13.8 % (11.5-14.5); Red Blood Count 4.94 M/uL (4.2-5.4); White Blood Count 6.63 K/uL (4.8-10.8)
[2019-08-27 16:42] LABS: Bacteria Urine Automated Negative (Negative); Blood Urine 3+ (Negative); Epithelial Cell Urine Auto >30 /lpf (0-5); Glucose Urine UA Negative (Negative); Ketones Urine Negative (Negative); Leukocyte Esterase Urine 1+ (Negative); Nitrite Urine Negative (Negative); Protein Urine 3+ (Negative); RBC Urine Automated >30 /hpf (0-4); Specific Gravity Urine 1.028 (1.000-1.030); Urobilinogen Urine Negative (Negative)
[2019-08-27 16:44] LABS: Appearance Urine Turbid (Clear); Bilirubin Urine Negative (Negative); Color Urine Red; Ictotest Urine Negative (Negative)
[2019-08-27 17:06] LABS: Amphetamines+Metham, Urine Neg (Neg); Barbiturates, Urine Neg (Neg); Benzodiazepine, Urine Neg (Neg); Cocaine, Urine Neg (Neg); MDMA (Ecstacy), Urine Neg (Neg); Methadone, Urine Neg (Neg); Opiate, Urine Neg (Neg); Phencyclidine, Urine Neg (Neg)
[2019-08-27 17:20] LABS: Albumin Level 3.9 gm/dl (3.4-5.0); BUN Creatinine Ratio 11.5 (10-20); Calcium 9.4 mg/dl (8.5-10.1); Creatinine Clr Calc Pharmacy 128.4 ml/min; Est GFR (African American) 126.4; Potassium 3.7 mmol/L (3.5-5.1)
[2019-08-27 17:23] LABS: Acetaminophen < 2 ug/ml (10-30); Salicylate < 1.7 mg/dl (2.8-20)
[2019-08-27 17:30] LABS: Albumin Globulin Ratio 0.9 (0.9-2); Bilirubin,Total 0.5 mg/dl (0.2-1); Globulin 4.2 gm/dl (2.5-4.0); Total Protein 8.1 gm/dl (6.4-8.2)
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
[2019-08-27] MEDS ORDERED: MONTELUKAST SODIUM 10 MG TABLET PO ONE (18:18)
[2019-08-27] MEDS ORDERED: lisinopriL 20 MG TAB PO STA (18:18)
[2019-08-27] MEDS ORDERED: SODIUM CHLORIDE 0.65% NA SOLN 45 ML (OCEAN) PRN (18:48)
[2019-08-27] MEDS ORDERED: ALUMINUM/MAGNESIUM SUSP 30 ML UDC PO PRN (18:48)
[2019-08-27] MEDS ORDERED: MAGNESIUM HYDROXIDE SUSP 30 ML UDC PO PRN (18:48)
[2019-08-27] MEDS ORDERED: BISMUTH SUBSALICYLATE PER ML OMNICELL CHARGE PO PRN (18:48)
[2019-08-27] MEDS ORDERED: ALBUTEROL HFA 8 GM INHALER INH PRN (18:49)
[2019-08-27] MEDS ORDERED: NON-FORMULARY PATIENT'S OWN MED TOP PRN (18:56)
[2019-08-27] MEDS ORDERED: DOCUSATE SODIUM 100 MG CAP PO PRN (18:59)
[2019-08-27] MEDS ORDERED: MELOXICAM 7.5 MG TAB PO PRN (19:02)
[2019-08-27] MEDS: ACETAMINOPHEN 325 MG TAB PO PRN (20:40)
[2019-08-27] MEDS ORDERED: TRIAMCINOLONE ACET 0.1% OINT 454 GM TOP SCH (21:00)
[2019-08-27] MEDS ORDERED: PRAZOSIN HCL 1 MG CAP PO SCH (21:00)
[2019-08-27] MEDS ORDERED: TRIAMCINOLONE ACET 0.1% CR 15 GM TUBE TOP SCH (21:00)
[2019-08-27] MEDS ORDERED: TRIAMCINOLONE ACET 0.1% OINT 15 GM TUBE TOP SCH (21:00)
[2019-08-27] MEDS ORDERED: SUCRALFATE 1 GM TAB PO SCH (21:00)
[2019-08-27] MEDS: TRAVOPROST Z 0.004% OPH SOLN 2.5 ML BTL OP SCH (21:13)
[2019-08-27] MEDS: DORZOLAMIDE/TIMOLOL 22.3/6.8MG/ML 10 ML BTL OP SCH (21:14)
[2019-08-27] MEDS: lamoTRIgine 25 MG TAB PO SCH (21:15)
[2019-08-27] MEDS: cephALEXin 500 MG CAP PO SCH (21:16)
[2019-08-27] MEDS: FLUTICASONE HFA 220 MCG INHALER INH SCH (21:16)
[2019-08-28] MEDS ORDERED: NON-FORMULARY PATIENT'S OWN MED SCH (09:00)
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
[2019-08-28] MEDS: FLUTICASONE HFA 220 MCG INHALER INH SCH ×2 (11:33→21:22)
[2019-08-28] MEDS: FERROUS SULFATE 325 MG TAB PO SCH ×2 (11:33→18:36)
[2019-08-28] MEDS: lamoTRIgine 25 MG TAB PO SCH ×2 (11:33→21:23)
[2019-08-28] MEDS: cephALEXin 500 MG CAP PO SCH ×2 (11:33→21:22)
[2019-08-28] MEDS: SUCRALFATE 1 GM TAB PO SCH ×3 (11:33→18:36)
[2019-08-28] MEDS: CETIRIZINE HCL 10 MG TABLET PO SCH (11:34)
[2019-08-28] MEDS: BuPROPion XL 150 MG TABCR PO SCH (11:34)
[2019-08-28] MEDS: PANTOprazole 40 MG TAB PO SCH (11:34)
[2019-08-28] MEDS: SERTRALINE HCL 100 MG TABLET PO SCH (11:34)
[2019-08-28] MEDS: DORZOLAMIDE/TIMOLOL 22.3/6.8MG/ML 10 ML BTL OP SCH (21:23)
[2019-08-28] MEDS: lisinopriL 10 MG TAB PO SCH (21:23)
[2019-08-28] MEDS: TRAVOPROST Z 0.004% OPH SOLN 2.5 ML BTL OP SCH (21:23)
[2019-08-28] MEDS: MONTELUKAST SODIUM 10 MG TABLET PO SCH (21:23)
[2019-08-28] MEDS: PRAZOSIN HCL 1 MG CAP PO SCH (21:23)
[2019-08-29] MEDS: ACETAMINOPHEN 325 MG TAB PO PRN (06:41)
[2019-08-29] MEDS: FLUTICASONE HFA 220 MCG INHALER INH SCH ×2 (09:03→21:19)
[2019-08-29] MEDS: FERROUS SULFATE 325 MG TAB PO SCH ×2 (09:04→19:05)
[2019-08-29] MEDS: SUCRALFATE 1 GM TAB PO SCH ×3 (09:04→19:05)
[2019-08-29] MEDS: lamoTRIgine 25 MG TAB PO SCH ×2 (09:05→21:20)
[2019-08-29] MEDS: PANTOprazole 40 MG TAB PO SCH (09:05)
[2019-08-29] MEDS: BuPROPion XL 150 MG TABCR PO SCH (09:05)
[2019-08-29] MEDS: cephALEXin 500 MG CAP PO SCH ×2 (09:05→21:20)
[2019-08-29] MEDS: SERTRALINE HCL 100 MG TABLET PO SCH (09:06)
[2019-08-29] MEDS: CETIRIZINE HCL 10 MG TABLET PO SCH (09:06)
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
[2019-08-29] MEDS: PRAZOSIN HCL 1 MG CAP PO SCH (21:20)
[2019-08-29] MEDS: DORZOLAMIDE/TIMOLOL 22.3/6.8MG/ML 10 ML BTL OP SCH (21:20)
[2019-08-29] MEDS: TRAVOPROST Z 0.004% OPH SOLN 2.5 ML BTL OP SCH (21:20)
[2019-08-29] MEDS: MONTELUKAST SODIUM 10 MG TABLET PO SCH (21:21)
[2019-08-29] MEDS: lisinopriL 10 MG TAB PO SCH (21:21)
[2019-08-30] MEDS: SUCRALFATE 1 GM TAB PO SCH ×3 (07:47→17:15)
[2019-08-30] MEDS: FERROUS SULFATE 325 MG TAB PO SCH ×2 (07:47→17:15)
[2019-08-30] MEDS: lamoTRIgine 25 MG TAB PO SCH (07:48)
[2019-08-30] MEDS: PANTOprazole 40 MG TAB PO SCH (07:48)
[2019-08-30] MEDS: FLUTICASONE HFA 220 MCG INHALER INH SCH ×2 (07:48→21:36)
[2019-08-30] MEDS: BuPROPion XL 150 MG TABCR PO SCH (07:48)
[2019-08-30] MEDS: cephALEXin 500 MG CAP PO SCH ×2 (07:48→21:39)
[2019-08-30] MEDS: SERTRALINE HCL 100 MG TABLET PO SCH (07:49)
[2019-08-30] MEDS: CETIRIZINE HCL 10 MG TABLET PO SCH (07:49)
[2019-08-30] MEDS: FLUTICASONE PROPIONATE NA SPR 16 GM BTL SCH (07:56)
--- NOTE | 2019-08-30 10:01 | Psychiatric Progress Note ---
Date of Service August 30, 2019 Impression / Recommendations Impression 24-year-old partnered female with an extensive psychiatric and medical history, history of serious overdose in a suicide attempt, multiple hospitalizations at outside facilities, currently with outpatient treatment in the [place] area, who presents with self injury by cutting and suicidal ideation in the context of the of her mother 7 months ago and chronically dysfunctional interpersonal relationships. Inpatient treatment is medically necessary due to the severity of her symptoms and risk for severe injury or suicide if discharged. Review of records shows past trial of Elavil, Tegretol, Tenex, Lexapro, Neurontin, Wellbutrin since at least 2015, prazosin up to 5 mg, Zoloft, Lamictal started 06/25 with titration at Sept appointment. for dx of PTSD and MDD by ELLY Hurst at [facility] with visits by ELLY Vanessa as well. (1) Self-inflicted injury: 08/28 - Continue inpatient treatment on a voluntary 201 commitment. - Encourage group attendance and participation. - Encourage working on healthy coping skills and discharge safety plan. (2) Depression: 08/28 -get records from [facility] where she sees a nurse practitioner who prescribes her psychotropic medications. She does not know when lamotrigine was started so will determine when her dose can be safely increased. Continue 50mg bid, bupropion XL 450mg daily, and sertraline 200mg daily. -Coordinate care with her VIKASMManisha. -Significant situational component,with very unhealthy relationships with family and boyfriend, life long interpersonal dysfunction and trauma, maladaptive personality traits and coping skills. 08/29 - Continue current outpatient medication regimen - records were again requested from her outpatient provider - At this time, engagement in group and recreational programming would likely be of significant benefit to the patient, but she has been resistant - Continue to encourage development of healthy and effective coping strategies - Meeting with vocational case manager this afternoon 08/30 --titrate Lamictal when patient amenable. (3) PTSD (post-traumatic stress disorder): Continue home dose of prazosin 5 mg at bedtime, as patient reports it has been helpful for nightmares. Coordinate care with outpatient therapist at [facility]. (4) Mild sleep apnea: 08/28 - MNPR for CPAP. (5) Sexually active: 08/28 - Patient is currently sexually active and does not use contraceptio n, although states she does not want to get . Will need f/u with OB-PEARL DIVER for contraception. (6) Ingrown toenail: 08/28 -complete course of cephalexin 500 mg twice daily started in the ER. Warm water soaks as needed. (7) HTN (hypertension): Continue home dose of lisinopril (8) COPD (chronic obstructive pulmonary disease): (9) Asthma: Continue azelastine-fluticasone inhaler daily and albuterol inhaler as needed. Continue home doses of montelukast 10 mg daily and cetirizine 10 mg daily. (10) Glaucoma: Continue dorzolamide-timolol and travoprost ophthalmic drops. (11) Post-traumatic arthritis of lower leg: Continue home dose of meloxicam as needed (12) Vitamin B12 deficiency: On vitamin B injections monthly (13) Acid reflux: Home medication, omeprazole, is nonformulary; substitute with pantoprazole 40 mg daily. (14) Obesity, morbid (more than 100 lbs over ideal weight or BMI > 40): 08/28 - Provide education re: healthy diet, encourage physical activity and weight loss. Inventory Assets Strengths: has housing, income, and outpatient providers Needs: structure, healthy relationships Risk Factors Assessment Male: No : Yes Do You Have Access To A Gun?: No Health Problems: Yes Mental Health Diagnoses: Yes Substance Use Disorders: No Previous Attempt: Yes Previous Attempt; Highly Lethal: Yes Family History of Suicide: No Previous Psychiatric Hospitalization: Yes Hopelessness: Yes Smoker: No Protective Factors Assessment Zoroastrianism Beliefs: No : No Responsible for Young Children: No Employed: No (SSI) Stable Relationships: No Supportive Family: No Interval History Identifying Information HOMER FERNANDEZ is a 24-year-old F who currently lives in [place] with her boyfriend, has a history of depression, anxiety, PTSD, and multiple medical problems including prediabetes, hypertension, sleep apnea,, and was admitted on 08/27/19 18:48 on a 201 voluntary commitment for self injury by cutting, suicidal thoughts, and history of suicide attempt. Chief Complaint "I can't young grief". Review of Systems Sleep Information Total Hours of Sleep: 8.75 Meal Information Percent Meal Consumed - Breakfast: 50 Percent Meal Consumed - Lunch: 50 Percent Meal Consumed - Dinner: 20 Nutrition Comment: pt. asleep Subjective Subjective Patient was seen & assessed and interval progress reviewed with nursing and social work. met with CM yesterday, appears irritability depressed from baseline. Reportedly resistant to medication changes up to this point in stay. Refusing groups. MNPR for CPAP. Is attending community meeting this am with plan to tell staff her mood rating 1-on-1. she discussed missing her mom and perceived rejection by brother and uncle when talks about her feelings. Mother in nov and they share a birthday so there are multiple reminders of her absence throughout the year. Homer feels she is the one who should have following her OD rather than her mother. Reviewed no structured plans for approaching holiday which is difficult given last year spent much of this time shopping for mother/preparing for her last Riley, etc. She discussed her social awkwardness in group conversations and use of video games as an escape. She is agreeable to titrate Lamictal to 50 mg qam and 100 mg pm. Physical Exam Psychiatric Orientation: alert Apperance: appropriately groomed Eye Contact: + fair eye contact Motor Behavior: no abnormal motor movements non-spontaneous Affect: + depressed affect and + irritable affect Mood: + depressed mood Thought Process: + concrete thought process Suicidal Thoughts: denies suicidal thoughts Homicidal Thoughts: denies homicidal thoughts Hallucinations: no auditory hallucinations and no visual hallucinations Estimated Intelligence: consistent with education level Insight: + limited insight Judgement: + limited judgement Vital Signs (Past 24 Hours) Last Vital Signs Temp 36.7 C 08/30/19 06:48 Pulse 111 H 08/30/19 06:49 Resp 18 08/30/19 06:48 BP 97/66 L 08/30/19 06:49 Pulse Ox 98 08/29/19 23:26 Results & Data Current Inpatient Medications Current Inpatient Medications: Current Inpatient Medications Acetaminophen (Tylenol) 650 mg PO Q4H PRN PRN Reason: Headache or Minor Fever Stop: 09/26/19 18:47 Last Admin: 08/29/19 06:41 Dose: 650 mg Documented by: Al Hydrox/Mg Hydrox/Simethicone (Maalox) 30 ml PO Q4H PRN PRN Reason: GI Upset Stop: 09/26/19 18:47 Albuterol (Ventolin Hfa) 2 puffs INH Q4H PRN PRN Reason: Shortness Of Breath Stop: 09/26/19 18:59 Bismuth Subsalicylate (Kaopectate) 15 ml PO PRN PRN PRN Reason: Loose Stool Stop: 09/26/19 18:47 Bupropion HCl (Wellbutrin-Xl) 450 mg PO QAM [facility] Stop: 09/27/19 08:59 Last Admin: 08/30/19 07:48 Dose: 450 mg Documented by: Cephalexin HCl (Keflex) 500 mg PO BID [facility] Stop: 09/05/19 09:01 Last Admin: 08/30/19 07:48 Dose: 500 mg Documented by: Cetirizine HCl (Zyrtec) 10 mg PO QAM [facility] Stop: 09/27/19 08:59 Last Admin: 08/30/19 07:49 Dose: 10 mg Documented by: Docusate Sodium (Colace) 100 mg PO BID PRN PRN Reason: Constipation Stop: 09/26/19 20:59 Dorzolamide/Timolol (Cosopt) 1 drops OP HS [facility] Stop: 09/26/19 20:59 Last Admin: 08/29/19 21:20 Dose: 1 drops Documented by: Ferrous Sulfate (Feosol) 325 mg PO BIDM [facility] Stop: 09/27/19 07:59 Last Admin: 08/30/19 07:47 Dose: 325 mg Documented by: Fluticasone Propionate (Flovent Hfa 220mcg) 2 puffs INH BID [facility] Stop: 09/26/19 20:59 Last Admin: 08/30/19 07:48 Dose: 2 puffs Documented by: Fluticasone Propionate (Flonase) 2 sprays NA DAILY [facility]; Protocol Stop: 09/29/19 08:59 Last Admin: 08/30/19 07:56 Dose: Not Given Documented by: Hydroxyzine HCl (Vistaril) 50 mg PO HSZ PRN PRN Reason: Insomnia Stop: 09/26/19 18:47 Hydroxyzine HCl (Vistaril) 25 mg PO Q4H PRN PRN Reason: Anxiety Stop: 09/26/19 18:47 Lamotrigine (Lamictal) 50 mg PO BID [facility] Stop: 09/26/19 20:59 Last Admin: 08/30/19 07:48 Dose: 50 mg Documented by: Lisinopril (Zestril) 30 mg PO HS [facility] Stop: 09/27/19 20:59 Last Admin: 08/29/19 21:21 Dose: 30 mg Documented by: Magnesium Hydroxide (Milk Of Magnesia) 30 ml PO DAILY PRN PRN Reason: Constipation Stop: 09/26/19 18:47 Meloxicam (Mobic) 15 mg PO DAILY PRN PRN Reason: Pain Stop: 09/27/19 08:59 Metronidazole (Metrogel Vag) 1 appln PV DAILY PRN PRN Reason: vaginal infection Stop: 09/07/19 08:59 Montelukast Sodium (Singulair) 10 mg PO [facility] Stop: 09/27/19 20:59 Last Admin: 08/29/19 21:21 Dose: 10 mg Documented by: Non-Formulary Medication (Non-Formulary Patient's Own Med) 1 ea TOP DAILY PRN PRN Reason: acne Stop: 09/27/19 08:59 Pantoprazole Sodium (Protonix) [facility] Stop: 09/27/19 08:59 Last Admin: 08/30/19 07:48 Dose: 40 mg Documented by: Prazosin HCl (Prazosin Hcl) 5 mg PO [facility] Stop: 09/27/19 20:59 Last Admin: 08/29/19 21:20 Dose: 5 mg Documented by: Sertraline HCl (Zoloft) 200 mg PO QAM [facility] Stop: 09/27/19 08:59 Last Admin: 08/30/19 07:49 Dose: 200 mg Documented by: Sodium Chloride ([place] Nasal) 1 - 2 sprays NA PRN PRN PRN Reason: Nasal Dryness/Congestion Stop: 09/26/19 18:47 Sucralfate (Carafate Tab) 1 gm PO TIDM [facility] Stop: 09/27/19 07:59 Last Admin: 08/30/19 07:47 Dose: 1 gm Documented by: Mental Health & Subst Abuse Tx Psychiatrist Name of Psychiatrist: Amada [facility] Psychiatrist's Date of Appointment with Psychiatrist: 09/11/19 Time of Appointment with Psychiatrist: 10:00 a.m. Psychiatric Appointment Comment: [address], [place] [address] Therapist Name of Therapist: Esteban Therapist's Date of Therapist Appointment: 09/02/19 Time of Therapist Appointment: 10:00 a.m. Therapy Appointment Comment: [address] [place] [address] Mortgage Professional Name of Mortgage Professional: [facility] Phone Number for Mortgage Professional: [phone] Date of Appointment with Mortgage Professional: 09/05/19 Time of Appointment with Mortgage Professional: 1:00 p.m. Case Management Appointment Comment: Will meet you at your aunt's apartment Post Discharge Appointments Primary Care Physician Name Of Family Doctor: [facility] - Dr. Sandra Brizuela Primary Care Date of Appointment with PCP: 09/18/19 Time of Appointment with PCP: 8:40am [facility]ment [facility] [facility] Name of Partial or Psych Rehab: [facility] Phone Number of Partial or Psych Rehab: [phone] Time of Appointment at Partial or Psych Rehab: Sees 1x/week Partial or Psych Rehab Appointment Comment: [address] [facility] [place], [facility], [place] [address] Measuring Machine Operator Name of Measuring Machine Operator: Sunny Chery Date of Appointment with Measuring Machine Operator: 08/28/19 Time of Appointment with Measuring Machine Operator: 10:30am Contact Information Discharge Discharge Address: [address] [place] [address] [place] [address]
[2019-08-30] MEDS: DORZOLAMIDE/TIMOLOL 22.3/6.8MG/ML 10 ML BTL OP SCH (21:35)
[2019-08-30] MEDS: TRAVOPROST Z 0.004% OPH SOLN 2.5 ML BTL OP SCH (21:35)
[2019-08-30] MEDS: lamoTRIgine 100 MG TAB PO SCH (21:38)
[2019-08-30] MEDS: PRAZOSIN HCL 1 MG CAP PO SCH (21:38)
[2019-08-30] MEDS: lisinopriL 10 MG TAB PO SCH (21:38)
[2019-08-30] MEDS: MONTELUKAST SODIUM 10 MG TABLET PO SCH (21:39)
[2019-08-31] MEDS: SUCRALFATE 1 GM TAB PO SCH ×3 (07:35→17:03)
[2019-08-31] MEDS: FERROUS SULFATE 325 MG TAB PO SCH ×2 (07:35→17:03)
[2019-08-31] MEDS: cephALEXin 500 MG CAP PO SCH ×2 (07:36→20:42)
[2019-08-31] MEDS: FLUTICASONE HFA 220 MCG INHALER INH SCH ×2 (07:36→20:41)
[2019-08-31] MEDS: FLUTICASONE PROPIONATE NA SPR 16 GM BTL SCH (07:36)
[2019-08-31] MEDS: PANTOprazole 40 MG TAB PO SCH (07:37)
[2019-08-31] MEDS: lamoTRIgine 25 MG TAB PO SCH (07:37)
[2019-08-31] MEDS: BuPROPion XL 150 MG TABCR PO SCH (07:38)
[2019-08-31] MEDS: SERTRALINE HCL 100 MG TABLET PO SCH (07:38)
[2019-08-31] MEDS: CETIRIZINE HCL 10 MG TABLET PO SCH (07:39)
--- NOTE | 2019-08-31 10:02 | Psychiatric Progress Note ---
Date of Service August 31, 2019 Impression / Recommendations Impression 24-year-old partnered female with an extensive psychiatric and medical history, history of serious overdose in a suicide attempt, multiple hospitalizations at outside facilities, currently with outpatient treatment in the [place] area, who presents with self injury by cutting and suicidal ideation in the context of the of her mother 7 months ago and chronically dysfunctional interpersonal relationships. Inpatient treatment is medically necessary due to the severity of her symptoms and risk for severe injury or suicide if discharged. Review of records shows past trial of Elavil, Tegretol, Tenex, Lexapro, Neurontin, Wellbutrin since at least 2015, prazosin up to 5 mg, Zoloft, Lamictal started 06/25 with titration at Sept appointment. for dx of PTSD and MDD by ELLY Hurst at [facility] with visits by ELLY Vanessa as well. (1) Self-inflicted injury: 08/28 - Continue inpatient treatment on a voluntary 201 commitment. - Encourage group attendance and participation. - Encourage working on healthy coping skills and discharge safety plan. (2) Depression: 08/28 -get records from [facility] [place] where she sees a nurse practitioner who prescribes her psychotropic medications. She does not know when lamotrigine was started so will determine when her dose can be safely increased. Continue 50mg bid, bupropion XL 450mg daily, and sertraline 200mg daily. -Coordinate care with her Manisha BULLARD. -Significant situational component,with very unhealthy relationships with family and boyfriend, life long interpersonal dysfunction and trauma, maladaptive personality traits and coping skills. 08/29 - Continue current outpatient medication regimen - records were again requested from her outpatient provider - At this time, engagement in group and recreational programming would likely be of significant benefit to the patient, but she has been resistant - Continue to encourage development of healthy and effective coping strategies - Meeting with medical case manager this afternoon 08/30 --titrate Lamictal when patient amenable. 08/31--rash unrelated to lamictal, hydrocortisone (3) PTSD (post-traumatic stress disorder): Continue home dose of prazosin 5 mg at bedtime, as patient reports it has been helpful for nightmares. Coordinate care with outpatient therapist at [facility]. (4) Mild sleep apnea: 08/28 - MNPR for CPAP. (5) Sexually active: 08/28 - Patient is currently sexually active and does not use contraception, although states she does not want to get . Will need f/u with OB-RN INTAKE for contraception. (6) Ingrown toenail: 08/28 -complete course of cephalexin 500 mg twice daily started in the ER. Warm water soaks as needed. (7) HTN (hypertension): Continue home dose of lisinopril (8) COPD (chronic obstructive pulmonary disease): (9) Asthma: Continue azelastine-fluticasone inhaler daily and albuterol inhaler as needed. Continue home doses of montelukast 10 mg daily and cetirizine 10 mg daily. (10) Glaucoma: Continue dorzolamide-timolol and travoprost ophthalmic drops. (11) Post-traumatic arthritis of lower leg: Continue home dose of meloxicam as needed (12) Vitamin B12 deficiency: On vitamin B injections monthly (13) Acid reflux: Home medication, omeprazole, is nonformulary; substitute with pantoprazole 40 mg daily. (14) Obesity, morbid (more than 100 lbs over ideal weight or BMI > 40): 08/28 - Provide education re: healthy diet, encourage physical activity and weight loss. Inventory Assets Strengths: has housing, income, and outpatient providers Needs: structure, healthy relationships Risk Factors Assessment Male: No : Yes Do You Have Access To A Gun?: No Health Problems: Yes Mental Health Diagnoses: Yes Substance Use Disorders: No Previous Attempt: Yes Previous Attempt; Highly Lethal: Yes Family History of Suicide: No Previous Psychiatric Hospitalization: Yes Hopelessness: Yes Smoker: No Protective Factors Assessment Catholic Beliefs: No : No Responsible for Young Children: No Employed: No ([employer]I) Stable Relationships: No Supportive Family: No Interval History Identifying Information HOMER FERNANDEZ is a 24-year-old F who currently lives in [place] with her boyfriend, has a history of depression, anxiety, PTSD, and multiple medical problems including prediabetes, hypertension, sleep apnea,, and was admitted on 08/27/19 18:48 on a 201 voluntary commitment for self injury by cutting, suicidal thoughts, and history of suicide attempt. Chief Complaint "I'm sorry I'm still so sad". Review of Systems Sleep Information Total Hours of Sleep: 7 Meal Information Percent Meal Consumed - Breakfast: 50 Percent Meal Consumed - Lunch: 50 Percent Meal Consumed - Dinner: 50 Nutrition Comment: pt. asleep Subjective Subjective Patient was seen & assessed and interval progress reviewed with nursing and social work. Poor social situation in that boyfriend 30 yo of 4 years has MH issues and both are on disability and home mainly playing video games during the day. She does like mobile psych rehab 4 hrs twice a month but declines group activities as "I don't like to talk". Has agreed to a phone meeting but unclear how much he will be participating. She has a contact dermatitis on the back on her right hand/wrist, no rash on trunk or abdomen, confined. Also c/o constipation. She denies SI but talks in very hopeless fashion about life and wishes that previous attempt would have worked. Physical Exam Psychiatric Orientation: alert Apperance: appropriately groomed Eye Contact: + fair eye contact Motor Behavior: no abnormal motor movements Speech: normal rate/rhythm/volume of speech Affect: + depressed affect Mood: + depressed mood Thought Process: + concrete thought process Thought Content: + worthlessness Suicidal Thoughts: denies suicidal thoughts Homicidal Thoughts: denies homicidal thoughts Hallucinations: no auditory hallucinations and no visual hallucinations Cognition: recent memory grossly intact Estimated Intelligence: consistent with education level Insight: + limited insight Judgement: + limited judgement Vital Signs (Past 24 Hours) Last Vital Signs Temp 36.6 C 08/31/19 06:54 Pulse 90 08/31/19 06:55 Resp 18 08/31/19 06:54 BP 93/58 L 08/31/19 06:55 Pulse Ox 98 08/31/19 03:26 Results & Data Current Inpatient Medications Current Inpatient Medications: Current Inpatient Medications Acetaminophen (Tylenol) 650 mg PO Q4H PRN PRN Reason: Headache or Minor Fever Stop: 09/26/19 18:47 Last Admin: 08/29/19 06:41 Dose: 650 mg Documented by: Al Hydrox/Mg Hydrox/Simethicone (Maalox) 30 ml PO Q4H PRN PRN Reason: GI Upset Stop: 09/26/19 18:47 Albuterol (Ventolin Hfa) 2 puffs INH Q4H PRN PRN Reason: Shortness Of Breath Stop: 09/26/19 18:59 Bismuth Subsalicylate (Kaopectate) 15 ml PO PRN PRN PRN Reason: Loose Stool Stop: 09/26/19 18:47 Bupropion HCl (Wellbutrin-Xl) 450 mg PO QAM [facility] Stop: 09/27/19 08:59 Last Admin: 08/31/19 07:38 Dose: 450 mg Documented by: Cephalexin HCl (Keflex) 500 mg PO BID [facility] Stop: 09/05/19 09:01 Last Admin: 08/31/19 07:36 Dose: 500 mg Documented by: Cetirizine HCl (Zyrtec) 10 mg PO QAM [facility] Stop: 09/27/19 08:59 Last Admin: 08/31/19 07:39 Dose: 10 mg Documented by: Docusate Sodium (Colace) 100 mg PO BID [facility] Stop: 09/30/19 09:29 Dorzolamide/Timolol (Cosopt) 1 drops OP HS [facility] Stop: 09/26/19 20:59 Last Admin: 08/30/19 21:35 Dose: 1 drops Documented by: Ferrous Sulfate (Feosol) 325 mg PO BIDM [facility] Stop: 09/27/19 07:59 Last Admin: 08/31/19 07:35 Dose: 325 mg Documented by: Fluticasone Propionate (Flovent Hfa 220mcg) 2 puffs INH BID [facility] Stop: 09/26/19 20:59 Last Admin: 08/31/19 07:36 Dose: 2 puffs Documented by: Fluticasone Propionate (Flonase) 2 sprays NA DAILY [facility]; Protocol Stop: 09/29/19 08:59 Last Admin: 08/31/19 07:36 Dose: Not Given Documented by: Hydrocortisone (Hydrocortisone 1%) 1 appln EXT BID [facility] Stop: 09/03/19 09:29 Hydroxyzine HCl (Vistaril) 50 mg PO HSZ PRN PRN Reason: Insomnia Stop: 09/26/19 18:47 Hydroxyzine HCl (Vistaril) 25 mg PO Q4H PRN PRN Reason: Anxiety Stop: 09/26/19 18:47 Lamotrigine (Lamictal) 100 mg PO PM [facility] Stop: 09/29/19 20:59 Last Admin: 08/30/19 21:38 Dose: 100 mg Documented by: Lamotrigine (Lamictal) 50 mg PO DAILY [facility] Stop: 09/30/19 08:59 Last Admin: 08/31/19 07:37 Dose: 50 mg Documented by: Lisinopril (Zestril) 30 mg PO [facility] Stop: 09/27/19 20:59 Last Admin: 08/30/19 21:38 Dose: 30 mg Documented by: Magnesium Hydroxide (Milk Of Magnesia) 30 ml PO DAILY PRN PRN Reason: Constipation Stop: 09/26/19 18:47 Meloxicam (Mobic) 15 mg PO DAILY PRN PRN Reason: Pain Stop: 09/27/19 08:59 Metronidazole (Metrogel Vag) 1 appln PV DAILY PRN PRN Reason: vaginal infection Stop: 09/07/19 08:59 Montelukast Sodium (Singulair) 10 mg PO [facility] Stop: 09/27/19 20:59 Last Admin: 08/30/19 21:39 Dose: 10 mg Documented by: Non-Formulary Medication (Non-Formulary Patient's Own Med) 1 ea TOP DAILY PRN PRN Reason: acne Stop: 09/27/19 08:59 Pantoprazole S[facility] ([facility]ix) [facility] Stop: 09/27/19 08:59 Last Admin: 08/31/19 07:37 Dose: 40 mg Documented by: Prazosin HCl (Prazosin Hcl) 5 mg PO [facility] Stop: 09/27/19 20:59 Last Admin: 08/30/19 21:38 Dose: 5 mg Documented by: Sertraline HCl (Zoloft) 200 [facility] Stop: 09/27/19 08:59 Last Admin: 08/31/19 07:38 Dose: 200 mg Documented by: Sodium Chloride ([place] Nasal) 1 - 2 sprays NA PRN PRN PRN Reason: Nasal Dryness/Congestion Stop: 09/26/19 18:47 Last Admin: 08/31/19 07:43 Dose: 2 sprays Documented by: Sucralfate (Carafate Tab) 1 gm PO TIDM [facility] Stop: 09/27/19 07:59 Last Admin: 08/31/19 07:35 Dose: 1 gm Documented by: Mental Health & Subst Abuse Tx Psychiatrist Name of Psychiatrist: Amada [facility] Psychiatrist's Date of Appointment with Psychiatrist: 09/11/19 Time of Appointment with Psychiatrist: 10:00 a.m. Psychiatric Appointment Comment: [address], [place] [address] Therapist Name of Therapist: Esteban Therapist's Date of Therapist Appointment: 09/02/19 Time of Therapist Appointment: 10:00 a.m. Therapy Appointment Comment: [address], [place] [address] Analyst Competitive Intelligence Name of Analyst Competitive Intelligence: [facility] Phone Number for Analyst Competitive Intelligence: [phone] Date of Appointment with Analyst Competitive Intelligence: 09/05/19 Time of Appointment with Analyst Competitive Intelligence: 1:00 p.m. Case Management Appointment Comment: Will meet you at your aunt's apartment Post Discharge Appointments Primary Care Physician Name Of Family Doctor: [facility] - Dr. Sandra Brizuela Primary Care Date of Appointment with PCP: 09/18/19 Time of Appointment with PCP: 8:40am Provider Appointment Comment: [address] [facility] [address] Partial or Psych Rehab Name of Partial or Psych Rehab: [facility] Phone Number of Partial or Psych Rehab: [phone] Time of Appointment at Partial or Psych Rehab: Sees 1x/week Partial or Psych Rehab Appointment Comment: [address], [facility] [address], [place] [address] Dye Expert Name of Dye Expert: Sunny hCery Date of Appointment with Dye Expert: 08/28/19 Time of Appointment with Dye Expert: 10:30am Contact Information Discharge Discharge Address: [address] [place] [address] [place] [address]
[2019-08-31] MEDS: HYDROCORTISONE 1% CRM 30 GM TUBE EXT SCH ×2 (10:17→20:41)
[2019-08-31] MEDS: DOCUSATE SODIUM 100 MG CAP PO SCH ×2 (10:17→20:40)
[2019-08-31] MEDS: ACETAMINOPHEN 325 MG TAB PO PRN (15:55)
[2019-08-31] MEDS: lamoTRIgine 100 MG TAB PO SCH (20:43)
[2019-08-31] MEDS: MONTELUKAST SODIUM 10 MG TABLET PO SCH (20:44)
[2019-08-31] MEDS: PRAZOSIN HCL 1 MG CAP PO SCH (21:42)
[2019-08-31] MEDS: DORZOLAMIDE/TIMOLOL 22.3/6.8MG/ML 10 ML BTL OP SCH (21:42)
[2019-08-31] MEDS: lisinopriL 10 MG TAB PO SCH (21:43)
[2019-08-31] MEDS: TRAVOPROST Z 0.004% OPH SOLN 2.5 ML BTL OP SCH (21:43)
[2019-09-01] MEDS: SUCRALFATE 1 GM TAB PO SCH ×3 (08:26→17:28)
[2019-09-01] MEDS: FLUTICASONE PROPIONATE NA SPR 16 GM BTL SCH (08:27)
[2019-09-01] MEDS: HYDROCORTISONE 1% CRM 30 GM TUBE EXT SCH ×2 (08:27→21:34)
[2019-09-01] MEDS: DOCUSATE SODIUM 100 MG CAP PO SCH ×2 (08:27→21:34)
[2019-09-01] MEDS: FERROUS SULFATE 325 MG TAB PO SCH ×2 (08:27→17:28)
[2019-09-01] MEDS: FLUTICASONE HFA 220 MCG INHALER INH SCH ×2 (08:27→21:34)
[2019-09-01] MEDS: lamoTRIgine 25 MG TAB PO SCH (08:28)
[2019-09-01] MEDS: PANTOprazole 40 MG TAB PO SCH (08:28)
[2019-09-01] MEDS: cephALEXin 500 MG CAP PO SCH ×2 (08:28→21:35)
[2019-09-01] MEDS: SERTRALINE HCL 100 MG TABLET PO SCH (08:29)
[2019-09-01] MEDS: CETIRIZINE HCL 10 MG TABLET PO SCH (08:29)
[2019-09-01] MEDS: BuPROPion XL 150 MG TABCR PO SCH (08:29)
--- NOTE | 2019-09-01 12:42 | Psychiatric Progress Note ---
Date of Service September 01, 2019 Impression / Recommendations Impression 24-year-old partnered female with an extensive psychiatric and medical history, history of serious overdose in a suicide attempt, multiple hospitalizations at outside facilities, currently with outpatient treatment in the [place] area, who presents with self injury by cutting and suicidal ideation in the context of the of her mother 7 months ago and chronically dysfunctional interpersonal relationships. Inpatient treatment is medically necessary due to the severity of her symptoms and risk for severe injury or suicide if discharged. (1) Self-inflicted injury: 08/28 - Continue inpatient treatment on a voluntary 201 commitment. - Encourage group attendance and participation. - Encourage working on healthy coping skills and discharge safety plan. 09/01 - Has been able to contract for safety, reaching out to staff when having thoughts of self harm - Continues to verbalize desire to withhold from harming herself (2) Depression: 08/28 -get records from [facility] where she sees a nurse practitioner who prescribes her psychotropic medications. She does not know when lamotrigine was started so will determine when her dose can be safely increased. Continue 50mg bid, bupropion XL 450mg daily, and sertraline 200mg daily. -Coordinate care with her VIKASMManisha. -Significant situational component,with very unhealthy relationships with family and boyfriend, life long interpersonal dysfunction and trauma, maladaptive personality traits and coping skills. 08/29 - Continue current outpatient medication regimen - records were again requested from her outpatient provider - At this time, engagement in group and recreational programming would likely be of significant benefit to the patient, but she has been resistant - Continue to encourage development of healthy and effective coping strategies - Meeting with nurse case manager this afternoon 08/30 --titrate Lamictal when patient amenable. 08/31--rash unrelated to lamictal, hydrocortisone 09/01 - Continue current medication regimen (3) PTSD (post-traumatic stress disorder): Continue home dose of prazosin 5 mg at bedtime, as patient reports it has been helpful for nightmares. Coordinate care with outpatient therapist at [facility]. (4) Mild sleep apnea: 08/28 - [facility] for CPAP. (5) Sexually active: 08/28 - Patient is currently sexually active and does not use contraception, although states she does not want to get . Will need f/u with OB-DIRECTOR [facility] for contraception. (6) Ingrown toenail: 08/28 -complete course of cephalexin 500 mg twice daily started in the ER. Warm water soaks as needed. (7) HTN (hypertension): Continue home dose of lisinopril (8) COPD (chronic obstructive pulmonary disease): (9) Asthma: Continue azelastine-fluticasone inhaler daily and albuterol inhaler as needed. Continue home doses of montelukast 10 mg daily and cetirizine 10 mg daily. (10) Glaucoma: Continue dorzolamide-timolol and travoprost ophthalmic drops. (11) Post-traumatic arthritis of lower leg: Continue home dose of meloxicam as needed (12) Vitamin B12 deficiency: On vitamin B injections monthly (13) Acid reflux: Home medication, omeprazole, is nonformulary; substitute with pantoprazole 40 mg daily. (14) Obesity, morbid (more than 100 lbs over ideal weight or BMI > 40): 08/28 - Provide education re: healthy diet, encourage physical activity and weight loss. Inventory Assets Strengths: has housing, income, and outpatient providers Needs: structure, healthy relationships Risk Factors Assessment Male: No : Yes Do You Have Access To A Gun?: No Health Problems: Yes Mental Health Diagnoses: Yes Substance Use Disorders: No Previous Attempt: Yes Previous Attempt; Highly Lethal: Yes Family History of Suicide: No Previous Psychiatric Hospitalization: Yes Hopelessness: Yes Smoker: No Protective Factors Assessment Scientologist Beliefs: No : No Responsible for Young Children: No Employed: No ([employer]) Stable Relationships: No Supportive Family: No Interval History Identifying Information HOMER FERNANDEZ is a 24-year-old F who currently lives in [place] with her boyfriend, has a history of depression, anxiety, PTSD, and multiple medical problems including prediabetes, hypertension, sleep apnea,, and was admitted on 08/27/19 18:48 on a 201 voluntary commitment for self injury by cutting, suicidal thoughts, and history of suicide attempt. Chief Complaint "Okay, I went to all the groups this weekend." Review of Systems Notes Constitutional: denied Cardiovascular: denied Respiratory: denied Gastrointestinal: denied Neurological: denied Psychiatric: denies symptoms other than stated above Total of at least 10 systems reviewed, pertinent positives as above and in HPI. Sleep Information Total Hours of Sleep: 7 Sleep Comments: she sleeps with a room light on dimly Meal Information Percent Meal Consumed - Breakfast: 50 Percent Meal Consumed - Lunch: 40 Percent Meal Consumed - Dinner: 90 Nutrition Comment: pt. asleep Subjective Subjective Patient was seen & assessed and interval progress reviewed with treatment team. Staff report the patient has been able to open up over the course of the weekend. She has been more engaged in group programming. She had a phone meeting with her boyfriend yesterday, likely resulting in little change in her home situation. Patient rated her mood a 5/10 and "depressed but happier" last evening. Patient was seen today to assess progress since admission. She states that she is feeling "okay" today. Patient shares with this provider that she is proud of herself as "I did share in group, even got into some of the deeper stuff. I did have to take an anxiety pill after though." This provider attempted to offer reassurance, previous inpatient for her willingness to open up in groups, and discussing that this will likely get easier as she continues to practice this skill. Patient states that in group they were talking about "positives." She states that she shared with the group some of her trauma background, explaining that things "were not so positive for me growing up." Patient states that she was able to acknowledge that the "positive" for her at this point was her ability to reach out to someone for help before seriously harming herself. Patient was encouraged to continue to open up in groups, and eventually with her outpatient providers. Patient is aware of anticipated discharge tomorrow, in order to keep her scheduled outpatient therapy appointment. Patient is agreeable with the discharge plan currently. She denies active suicidality at this time. Patient denies other acute needs or concerns today. Physical Exam Psychiatric Orientation: alert, oriented x 3 and cooperative Apperance: appropriately dressed (Casually, in T-shirt and scrub pants) and appeared stated age Eye Contact: + fair eye contact Motor Behavior: steady gait and station; + abnormal motor movements (Appearing restless, fidgeting with stress ball for duration of interview) Speech: normal rate/rhythm/volume of speech (Spontaneous,) Affect: + depressed affect, + anxious affect and mood congruent with affect Mood: + depressed mood ("I think getting a little better.") Thought Process: goal directed thought process, clear/coherent thought process, + concrete thought process and thought association intact Thought Content: reality based without delusions; no hopelessness and no worthlessness Suicidal Thoughts: denies suicidal thoughts and denies suicidal intent Homicidal Thoughts: denies homicidal thoughts Hallucinations: no auditory hallucinations and no visual hallucinations Cognition: attention grossly intact and language grossly intact Insight: + fair insight Judgement: + fair judgement Vital Signs (Past 24 Hours) Last Vital Signs Temp 36.7 C 09/01/19 06:46 Pulse 91 H 09/01/19 06:47 Resp 20 09/01/19 06:46 BP 90/63 L 09/01/19 06:47 Pulse Ox 98 09/01/19 03:20 Results & Data Current Inpatient Medications Current Inpatient Medications: Current Inpatient Medications Acetaminophen (Tylenol) 650 mg PO Q4H PRN PRN Reason: Headache or Minor Fever Stop: 09/26/19 18:47 Last Admin: 08/31/19 15:55 Dose: 650 mg Documented by: Al Hydrox/Mg Hydrox/Simethicone (Maalox) 30 ml PO Q4H PRN PRN Reason: GI Upset Stop: 09/26/19 18:47 Albuterol (Ventolin Hfa) 2 puffs INH Q4H PRN PRN Reason: Shortness Of Breath Stop: 09/26/19 18:59 Bismuth Subsalicylate (Kaopectate) 15 ml PO PRN PRN PRN Reason: Loose Stool Stop: 09/26/19 18:47 Bupropion HCl (Wellbutrin-Xl) 450 mg PO QAM [facility] Stop: 09/27/19 08:59 Last Admin: 09/01/19 08:29 Dose: 450 mg Documented by: Cephalexin HCl (Keflex) 500 mg PO BID [facility] Stop: 09/05/19 09:01 Last Admin: 09/01/19 08:28 Dose: 500 mg Documented by: Cetirizine HCl (Zyrtec) 10 mg PO QAM [facility] Stop: 09/27/19 08:59 Last Admin: 09/01/19 08:29 Dose: 10 mg Documented by: Docusate Sodium (Colace) 100 mg PO BID [facility] Stop: 09/30/19 09:29 Last Admin: 09/01/19 08:27 Dose: 100 mg Documented by: Dorzolamide/Timolol (Cosopt) 1 drops OP HS [facility] Stop: 09/26/19 20:59 Last Admin: 08/31/19 21:42 Dose: 1 drops Documented by: Ferrous Sulfate (Feosol) 325 mg PO BIDM [facility] Stop: 09/27/19 07:59 Last Admin: 09/01/19 08:27 Dose: 325 mg Documented by: Fluticasone Propionate (Flovent Hfa 220mcg) 2 puffs INH BID [facility] Stop: 09/26/19 20:59 Last Admin: 09/01/19 08:27 Dose: 2 puffs Documented by: Fluticasone Propionate (Flonase) 2 sprays NA DAILY [facility]; Protocol Stop: 09/29/19 08:59 Last Admin: 09/01/19 08:27 Dose: Not Given Documented by: Hydrocortisone (Hydrocortisone 1%) 1 appln EXT BID [facility] Stop: 09/03/19 09:29 Last Admin: 09/01/19 08:27 Dose: 1 appln Documented by: Hydroxyzine HCl (Vistaril) 50 mg PO HSZ PRN PRN Reason: Insomnia Stop: 09/26/19 18:47 Hydroxyzine HCl (Vistaril) 25 mg PO Q4H PRN PRN Reason: Anxiety Stop: 09/26/19 18:47 Last Admin: 09/01/19 12:32 Dose: 25 mg Documented by: Lamotrigine (Lamictal) 100 mg PO PM [facility] Stop: 09/29/19 20:59 Last Admin: 08/31/19 20:43 Dose: 100 mg Documented by: Lamotrigine (Lamictal) 50 mg PO DAILY [facility] Stop: 09/30/19 08:59 Last Admin: 09/01/19 08:28 Dose: 50 mg Documented by: Lisinopril (Zestril) 30 mg PO HS [facility] Stop: 09/27/19 20:59 Last Admin: 08/31/19 21:43 Dose: 30 mg Documented by: Magnesium Hydroxide (Milk Of Magnesia) 30 ml PO DAILY PRN PRN Reason: Constipation Stop: 09/26/19 18:47 Last Admin: 08/31/19 12:17 Dose: 30 ml Documented by: Meloxicam (Mobic) 15 mg PO DAILY PRN PRN Reason: Pain Stop: 09/27/19 08:59 Metronidazole (Metrogel Vag) 1 appln PV DAILY PRN PRN Reason: vaginal infection Stop: 09/07/19 08:59 Montelukast Sodium (Singulair) 10 mg PO HS [facility] Stop: 09/27/19 20:59 Last Admin: 08/31/19 20:44 Dose: 10 mg Documented by: Non-Formulary Medication (Non-Formulary Patient's Own Med) 1 ea TOP DAILY PRN PRN Reason: acne Stop: 09/27/19 08:59 Pantoprazole Sodium (Protonix) 40 mg PO QAM [facility] Stop: 09/27/19 08:59 Last Admin: 09/01/19 08:28 Dose: 40 mg Documented by: Prazosin HCl (Prazosin Hcl) 5 mg PO HS [facility] Stop: 09/27/19 20:59 Last Admin: 08/31/19 21:42 Dose: 5 mg Documented by: Sertraline HCl (Zoloft) 200 mg PO QAM [facility] Stop: 09/27/19 08:59 Last Admin: 09/01/19 08:29 Dose: 200 mg Documented by: Sodium Chloride (Ramsey Nasal) 1 - 2 sprays NA PRN PRN PRN Reason: Nasal Dryness/Congestion Stop: 09/26/19 18:47 Last Admin: 08/31/19 07:43 Dose: 2 sprays Documented by: Sucralfate (Carafate Tab) 1 gm PO TIDM [facility] Stop: 09/27/19 07:59 Last Admin: 09/01/19 12:30 Dose: 1 gm Documented by: Mental Health & Subst Abuse Tx Psychiatrist Name of Psychiatrist: [facility] Psychiatrist's Date of Appointment with Psychiatrist: 09/11/19 Time of Appointment with Psychiatrist: 10:00 a.m. Psychiatric Appointment Comment: [address] [place] [address] Therapist Name of Therapist: [facility] Date of Therapist Appointment: 09/02/19 Time of Therapist Appointment: 10:00 a.m. Therapy Appointment Comment: [address] [place] [address] Manager Front Office Name of Manager Front Office: [facility] Phone Number for Manager Front Office: [phone] Date of Appointment with Manager Front Office: 09/05/19 Time of Appointment with Manager Front Office: 1:00 p.m. Case Management Appointment Comment: Will meet you at your aunt's apartment Post Discharge Appointments Primary Care Physician Name Of Family Doctor: [facility] - Dr. Sandra Brizuela Primary Care Date of Appointment with PCP: 09/18/19 Time of Appointment with PCP: 8:40am Provider Appointment Comment: [address] [facility], [facility] [address], [place] Partial or Psych Rehab Name of Partial or Psych Rehab: [facility] Phone Number of Partial or Psych Rehab: [phone] Date of Appointment at Partial or Psych Rehab: 09/03/19 Time of Appointment at Partial or Psych Rehab: 8:30 a.m. Partial or Psych Rehab Appointment Comment: [address], [address], [place] [address] Patrol Police Lieutenant Name of Patrol Police Lieutenant: Sunny Chery Date of Appointment with Patrol Police Lieutenant: 08/28/19 Time of Appointment with Patrol Police Lieutenant: 10:30am Other #1: Name of Aftercare Appointment: [facility] - ELLY [place]el[place] Phone Number of Aftercare Appointment: [phone] Date of Aftercare Appointment: 09/18/19 Time of Aftercare Appointment: 9:00am Aftercare Appointment Comment: 3 wk follow up for ingrown toenail removal #2: Name of Aftercare Appointment: [facility] - Dr. Robin Almonte Phone Number of Aftercare Appointment: [phone] Date of Aftercare Appointment: 08/29/19 Aftercare Appointment Comment: Follow up for carpal tunnel - [address] [facility] Contact Information Discharge Discharge Address: [address] [place] [address], [facility] [place] [address]
[2019-09-01] MEDS: TRAVOPROST Z 0.004% OPH SOLN 2.5 ML BTL OP SCH (21:35)
[2019-09-01] MEDS: PRAZOSIN HCL 1 MG CAP PO SCH (21:36)
[2019-09-01] MEDS: lisinopriL 10 MG TAB PO SCH (21:36)
[2019-09-01] MEDS: lamoTRIgine 100 MG TAB PO SCH (21:36)
[2019-09-01] MEDS: DORZOLAMIDE/TIMOLOL 22.3/6.8MG/ML 10 ML BTL OP SCH (21:37)
[2019-09-01] MEDS: MONTELUKAST SODIUM 10 MG TABLET PO SCH (21:37)
[2019-09-02] MEDS: DOCUSATE SODIUM 100 MG CAP PO SCH (07:31)
[2019-09-02] MEDS: SUCRALFATE 1 GM TAB PO SCH (07:31)
[2019-09-02] MEDS: HYDROCORTISONE 1% CRM 30 GM TUBE EXT SCH (07:32)
[2019-09-02] MEDS: FLUTICASONE HFA 220 MCG INHALER INH SCH (07:32)
[2019-09-02] MEDS: FERROUS SULFATE 325 MG TAB PO SCH (07:32)
[2019-09-02] MEDS: FLUTICASONE PROPIONATE NA SPR 16 GM BTL SCH (07:32)
[2019-09-02] MEDS: cephALEXin 500 MG CAP PO SCH (07:33)
[2019-09-02] MEDS: lamoTRIgine 25 MG TAB PO SCH (07:33)
[2019-09-02] MEDS: BuPROPion XL 150 MG TABCR PO SCH (07:34)
[2019-09-02] MEDS: PANTOprazole 40 MG TAB PO SCH (07:34)
[2019-09-02] MEDS: SERTRALINE HCL 100 MG TABLET PO SCH (07:35)
[2019-09-02] MEDS: CETIRIZINE HCL 10 MG TABLET PO SCH (07:35)
--- NOTE | 2019-09-02 09:00 | Discharge Summary ---
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 TIDM RF: 0 clindamycin phosphate 1 % gel 1 appln TOP DAILY PRN (Reason: sore lesion) Qty: 30 RF: 0 omeprazole 40 mg capsule,delayed release(DR/EC) 40 mg PO QAM RF: 0 montelukast 10 mg tablet 10 mg PO QPM Qty: 30 RF: 2 cyanocobalamin (vitamin B-12) 1,000 mcg/mL solution 100 mcg IM MONTHLY Qty: 1 RF: 2 meloxicam 15 mg tablet 15 mg PO DAILY PRN (Reason: pain) Qty: 30 RF: 2 Flovent HFA 220 mcg/actuation HFA aerosol inhaler 2 puffs INH Q12H Qty: 12 RF: 3 cephalexin 500 mg capsule 500 mg PO BID Qty: 20 RF: 0 sertraline 100 mg tablet 200 mg PO QAM RF: 0 dorzolamide-timolol 22.3-6.8 mg/mL drops 1 drp ophthalmic (eye) HS RF: 0 albuterol sulfate 90 mcg/actuation HFA aerosol inhaler 2 puff inhalation Q4H PRN (Reason: Shortness Of Breath) RF: 0 azelastine-fluticasone 137-50 mcg/spray Gable,Non-Aerosol 2 spray INTRANASAL DAILY RF: 0 ferrous sulfate 324 mg (65 mg iron) tablet,delayed release (DR/EC) 324 mg PO BID RF: 0 triamcinolone acetonide 0.1 % Ointment 1 applic TOPICAL BID RF: 0 Discontinued lamotrigine [Lamictal] 25 mg Tablet 50 mg PO BID RF: 0 Discharge Orders: Discharge Order (Routine); Ordered 09/02/19 Ordered By: Kayleigh Cao Admission Data Admit Date/Time: 08/27/19 18:48 Attending Provider: Millie Patino Admit Provider: Camille Manjarrez Primary Care Provider: Sandra Brizuela Other Interventions: Discharge Summary Assessment (RN) Last Done: 09/02/19 08:45 DC Date/Time DO NOT enter until pt leaves facility: 09/02/19 09:15 Coding Level of Care Code 81668 D/C day mgmt > 30 min Diagnoses Self-inflicted injury Z72.89 Depression F32.9 PTSD (post-traumatic stress disorder) F43.10 Mild sleep apnea G47.30 Sexually active Ingrown toenail L60.0 HTN (hypertension) I10 COPD (chronic obstructive pulmonary disease) J44.9 Asthma J45.909 Glaucoma H40.9 Post-traumatic arthritis of lower leg Vitamin B12 deficiency E53.8 Acid reflux K21.9 Obesity, morbid (more than 100 lbs over ideal weight or BMI > 40) E66.01
== END 2019-09-02 09:15 | disposition home or self-care (01) | DRG 881 ==
LOC: ED 15:43 → 3S 18:48